=== PATIENT | female | born 1965 | race Caucasian/White ===

== ENCOUNTER 2020-06-13 09:40 | Outpatient (REF) | payer MEDICARE, SELFPAY ==
[2020-06-13 10:53] LABS: Anion Gap 13 (12-20); Blood Urea Nitrogen 14 mg/dL (9-16); Calcium 9.3 mg/dL (8.4-10.2); Carbon Dioxide 25 mmol/L (22-29); Chloride 105 mmol/L (96-108); Estimated Glomerular Filt Rate 40; Potassium 4.6 mmol/l (3.3-5.1); Sodium 138 mmol/L (135-145)
== END 2020-06-13 09:41 | disposition home or self-care (01) ==
LOC: HO.LAB 09:40
PROVIDERS: Visit Provider Internal Medicine Hypertension Specialist
DX: I10 Essential (primary) hypertension (principal); E11.21 Type 2 diabetes mellitus with diabetic nephropathy
CPT/HCPCS: 80051; 82310; 82565; 84520

== ENCOUNTER 2024-10-13 10:15 | Outpatient (REF) | payer MEDICARE, MEDICAID, SELFPAY ==
[2024-10-13 10:48] LABS: MANUAL DIFF FLAG NO
--- OUTSIDE RECORDS SUMMARY | 2024-10-13 11:10 | XMS_ITS | Encounter Summary ---
Author Organization [facility] Address [address] [address] Phone Care Team Providers Care Scientific Informatics Analyst Name Role Phone Manuel Stephenson MD Primary Care Provider [phone] Encounter Details Date Type Department Care Team (Late st Contact Info) Description 09/27/2024 Orders Only [facility] [address] [place] [address] Tor Johnson MD [address] [address] Stage 3b chronic kidney disease (HCC); Renal osteodystrophy; Hypertensive disorder Social History Tobacco Use Types Packs/Day Years Used Date Smoking Tobacco: Former Smokeless Tobacco: Never Alcohol Use Standard Drinks/Week Comments Never 0 (1 standard drink = 0.6 oz pure alcohol) Alcoholic Drinks/day: 1-2 drinks per day Comments Unknown Sex and Gender Information Value Date Recorded Sex Assigned at Not on file Legal Sex Female 4:55 PM EST Gender Identity Not on file Sexual Orientation Not on file documented as of this encounter Plan of Treatment Upcoming Encounters Date Type Department Care Team (Late st Contact Info) Description 10/20/2024 9:45 AM EST Office Visit [facility] [address] [address] Tor Johnson MD [address] [address] documented as of this encounter Visit Diagnoses Diagnosis Stage 3b chronic kidney disease (HCC) Renal osteodystrophy Hypertensive disorder documented in this encounter Care Teams Scientific Informatics Analyst Relationship Specialty Start Date End Date Manuel Stephenson MD [address] [place] [address] PCP - General 09/16/20 documented as of this encounter
--- OUTSIDE RECORDS SUMMARY | 2024-10-13 11:10 | XMS_ITS | Data Portability ---
Author Organization [facility] [address] Address [address] [place] [address] Care Team Providers Care Pick Pulling Machine Operator Name Role Phone SALINA LOPEZ Primary Care Provider Assessment No assessment recorded. Plan of Treatment Reminders Order Date Submit Date Provider Last Modified By Organization Details Last Modified Time Details Appointments None recorded . Lab None recorded . Referral orthoped ic surgeon referral - avulsion fracture of right ankle(fi bula) mildly displace . need further evaluati on and treatmen t. [facility] [address] [place], [address], 3 14:23:15 Procedures None recorded . Surgeries None recorded . Imaging XR, ankle, 3 or more view 2022 023 [facility], [address] [place], [address], 3 14:55:16 Medication Orders None recorded . Patient TargetsNo targets recorded. Patient Instructions Encounter Date Encounter Id Patient Instructions Last Modified By Organization Details Last Modified Time 03/26/2023 [id number] learning about rice (rest, ice, compression, and elevation) [email or web address] Not available 03/26/2023 13:52:08 ice or heat to area whichever feels better elevate affected area if it is a limb alternate ibuprofen, 4 hours later tylenol, 4 hours later back to ibuprofen may wrap for extra support wear tennis shoes or good arch supportive shoes start drawing your ABCs with your injured ankle to help strengthen the ligaments and tendons SEE FAMILY DOCTOR IF PAIN PERSISTS AFTER THE ABOVE TREATMENT--YOU MAY NEED PHYSCIAL THERAPY OR POSSIBLE MRI WITH REFERRAL TO SPECIALIST [email or web address] Not available 03/26/2023 13:52:08 Reason for Referral Orthopedic Surgeon Referral for Closed fracture of lateral malleolus avulsion fracture of right ankle(fibula) mildly displace. need further evaluation and treatment. avulsion fracture of right ankle(fibula) mildly displace. need further evaluation and treatment. Referring Physician: Chino Isaac, Urgent Care, Encounter Date: 03/26/2023 Results Created Date Observation Date Name Description Value Unit Range Abnormal Flag Note LastModifiedBy Organization Detail LastModifiedTime 03/26/20 23 03/26/2023 XR, ankle , 3 or more view No observ ation record ed. [email or web address] [facility] [address] [place], [place], [address], 03/26/2023 17:16:46 Result Notes None recorded. Problems Name Problem SNOMED Code Status Onset Date Resolution Date Notes Provider Name and Address Organization Details Recorded Time Hypertensive disorder 96555149 Active 2022 Monse Jaime null, [place] - [facility] 3 13:28:40 Diabetes mellitus 91487092 Active 2022 Monse Cusseta null, PA - [facility] 3 13:28:47 Kidney disease 98923047 Active 2022 stage 3 Monse Jaime null, PA - [facility] 3 13:28:56 Problem Notes None recorded. Procedures Surgical History None recorded. Imaging Results Imaging Date Name Status LastModified by Organiz ation Details LastModified Time 03/26/2023 XR, ankle, 3 or more view completed [email or web address] [facility] [address] [place], [place], [address], 03/26/2023 17:16:46 Procedure Notes None recorded. Medical Equipment None Reported. Allergies Allergen ID Allergen Name Allergen Category Reaction Reaction Severity Criticality Documentation Date Start Date Code Code System Note Provider Name and Address Organization Details Recorded Time 983057 amoxicill in medicatio n rash Not available Not available 03/26/2023 723 RxNorm Monse Cusseta null, PA - [facility] 3 13:28:13 Medications Name Sig Start Date Stop Date Status Note LastModified by Organization Details LastModified Time ziprasidone 80 mg capsule TAKE 1 CAPSULE BY MOUTH EVERYDAY AT BEDTIME active Not Available Not Available No t Available latanoprost 0.005 % eye drops INSTILL 1 DROP INTO BOTH EYES EVERY DAY AT NIGHT active Not Available Not Available No t Available atorvastati n 40 mg tablet TAKE 1 TABLET BY MOUTH EVERY EVENING active Not Available Not Available No t Available metformin 500 mg tablet TAKE 1 TABLET BY MOUTH EVERY MORNING AND 2 TABLETS IN THE EVENING WITH MEALS active Not Available Not Available No t Available clonidine HCl 0.1 mg tablet TAKE 1 TABLET BY MOUTH TWICE A DAY active Not Available Not Available No t Available lisinopril 20 mg tablet TAKE 1 TABLET BY MOUTH EVERY DAY active Not Available Not Available No t Available clonazepam 0.5 mg tablet TAKE 1/2 (ONE-HALF ) TABLET BY MOUTH IN THE EVENING NEEDED AND ONE TABLET AT BEDTIME active Not Available Not Available No t Available torsemide 10 mg tablet TAKE 1 TABLET BY MOUTH EVERY DAY active Not Available Not Available No t Available metronidazo le 500 mg tablet 1 TABLET TWICE A DAY AFTER MEALS 03/26 completed Not Available Not Available Not Available amlodipine 5 mg tablet TAKE 2 TABLETS BY MOUTH EVERY DAY active Not Available Not Available No t Available vancomycin 125 mg capsule 1 CAPSULE FOUR TIMES A DAY TAKE VANCOMYCI N FOR 10 DAYS THEN TAKE RIFAXIMIN 03/26 completed Not Available Not Available Not Available OneTouch Ultra Test strips USE 1 STRIP TWICE A DAY active Not Available Not Available No t Available mirtazapine 15 mg tablet TAKE 1 TABLET BY MOUTH EVERYDAY AT BEDTIME active Not Available Not Available No t Available fluoxetine 20 mg capsule TAKE 2 CAPSULES BY MOUTH EVERY MORNING active Not Available Not Available No t Available dicyclomine 10 mg capsule TAKE 1 CAPSULE BY MOUTH TWICE A DAY active Not Available Not Available No t Available cyclobenzap rine 5 mg tablet TAKE 1 TABLET BY MOUTH 3 TIMES A DAY active Not Available Not Available No t Available bupropion HCl XL 300 mg 24 hr tablet, extended release TAKE 1 TABLET BY MOUTH EVERY DAY IN THE MORNING active Not Available Not Available No t Available bupropion HCl XL 150 mg 24 hr tablet, extended release TAKE 1 TABLET BY MOUTH EVERY DAY IN THE MORNING active Not Available Not Available No t Available bimatoprost 0.03 % drops with applicator, eyelash base APPLY 1 DROP VIA APPLICATO R AT BEDTIME active Not Available Not Available No t Available Dificid 200 mg tablet TAKE 1 TABLET TWICE A DAY START TAKING AFTER YOU FINISH VANCOMYCI N active Not Available Not Available No t Available OneTouch Ultra2 Meter USE TO TEST BLOOD SUGER ONCE A DAY active Not Available Not Available No t Available OneTouch Delica Plus Lancet 33 gauge USE 1 LANCET TO CHECK BLOOD SUGAR ONCE DAILY active Not Available Not Available No t Available Vitals Date Recorded Body height Body mass index (BMI) Body weight Pain severity - 0-10 verbal numeric rating [Score] - Reported Oxygen saturation Oxygen saturation in Arterial blood by Pulse oximetry Heart rate Respiratory rate Body temperature Systolic blood pressure Diastolic blood pressure Provider Name and Address Organization Details Last Updated DateTime 170.18 cm 28.2 kg/m2 05562.6 3 g 10 97 % 97 % 104 /min 20 /min 98.1 [degF] 109 mm[Hg] 72 mm[Hg] Monse OSEI [facility] 13:30:42 Social History Question Answer Notes LastModified by [email or web address] ion Details LastModified Time Tobacco Smoking Status Never Smoker Monse villagran PA [facility] 03/26/2023 13:29:04 What Is Your Level Of Alcohol Consumption? None Information not available 03/26/2023 Have You Had Direct Contact, Or Contact During Intimacy, With Monkeypox Rash, Scabs, Or Body Fluids From A Person With Monkeypox? No Information not available 03/26/2023 Do You Use Any Illicit Or Recreational Drugs? No Information not available 03/26/2023 Have You Recently Traveled Abroad? No Information not available 03/26/2023 Do You Or Have You Ever Used Any Other Forms Of Tobacco Or Nicotine? No Information not available 03/26/2023 Sex: Unknown Functional Status None recorded. Mental Status None recorded. Family History Relationship Description Onset Age of this Age Resolved Age Notes LastModified by Organization Details LastModified Time Father No current problems or disability Not available 03/26 13:28:58 Mother No current problems or disability Not available 03/26 13:28:58 Medical History No medical history recorded. Gynecological History Statement/Question Response Is there any chance of ? No LMP N/A Obstetrics History GPAL:G 0 P 0 0 0 0 Immunizations Vaccine Type Date Status Note Provider Nam e and Address Organization Details Recorded Time zoster recombinant 1 completed Monse Jaime null, PA - [facility] 03/26/2023 13:28:06 zoster recombinant 0 completed Monse Jaime null, PA - [facility] 03/26/2023 13:28:06 COVID-19, mRNA, LNP-S, PF, 30 mcg/0.3 mL dose 1 completed Monse Jaime null, PA - [facility] 03/26/2023 13:28:06 COVID-19, mRNA, LNP-S, PF, 30 mcg/0.3 mL dose 1 completed Monse Jamie null, PA - [facility] 03/26/2023 13:28:06 COVID-19, mRNA, LNP-S, PF, 30 mcg/0.3 mL dose 1 completed Monse Cusseta null, PA - [facility] 03/26/2023 13:28:06 pneumococcal polysaccharide PPV23 1 completed Monse Cusseta null, PA - [facility] 03/26/2023 13:28:06 Tdap 4 completed Omnse Jaime null, PA - [facility] 03/26/2023 13:28:06 Influenza, split virus, trivalent, preservative 2 completed Monse Cusseta null, PA - [facility] 03/26/2023 13:28:06 Influenza, split virus, trivalent, preservative 5 completed Monse Jaime null, PA - [facility] 03/26/2023 13:28:06 Influenza, split virus, trivalent, preservative 3 completed Monse Cusseta null, PA - [facility] 03/26/2023 13:28:06 Influenza, split virus, trivalent, preservative 4 completed Monse Cusseta null, PA - [facility] 03/26/2023 13:28:07 Influenza, split virus, trivalent, preservative 1 completed Monse Cusseta null, PA - [facility] 03/26/2023 13:28:07 Influenza, split virus, trivalent, PF 6 completed Monse Cusseta null, PA - [facility] 03/26/2023 13:28:07 Influenza, split virus, quadrivalent, PF 0 completed Monse Jaime null, PA - [facility] 03/26/2023 13:28:07 Influenza, split virus, quadrivalent, PF 8 completed Monse Cusseta null, PA - [facility] 03/26/2023 13:28:07 Past Encounters Encounter ID Performer Location Encounter Start Date Encounter Closed Date Diagnosis/Indication Diagnosis SNOMED-CT Code Diagnosis ICD10 Code Diagnosis Note [id number] [address] [address] 07/17/2019 09:19:36 07/17/2019 09:44:27 [id number] [place] [address] [address] [place] [address] 03/26/2023 13:14:04 03/26/2023 14:21:33 Pain of right ankle joint 9910662593 8061099 M25.571 Closed fra cture of lateral malleolus 82719499 S82.61XA Health Concerns Section Related Observation LastModified by Organization Detai ls LastModified Time None Recorded Concern Status LastModified by Organization Details LastModified Time None Recorded Advance Directives Directive None Recorded Payers Encounter Date Sequence Insurance Name Policy Number Policy Rooney Covered Member ID Rooney Member ID Guarantor Name 07/17/2019 1 [facility] (MEDICARE REPLACEMENT HMO) February Roberto [id number] February Roberto 03/26/2023 1 [facility] SENIOR [facility] (MEDICARE REPLACEMENT HMO) February Roberto [id number] February Roberto 03/26/2023 2 [place] [facility] February Roberto [id number] February Notes Date Note Type Note Provider Name and Address Organization Details Recorded Time 3 text/html Foot/Ankle UCReported bypatient.source of patient informationInformation obtained from patient; Patient arrived at Urgent Care ambulatory; learning styles: auditory Location:right; ankle Problemswelling Severity:moderate Duration:4 days Context:twisting; overuse Associated Symptoms:no weakness; no numbness; no tingling; no ecchymosis;swelling;redness ;warmth Aggravating factors:standing; walking; work Alleviating factors:ice; limited weight bearing; rest Previous InjuryNo prior injury to affected body part Previous Treatmentnone Prior Imaging:none Chino Isaac NP [address] [place], [address], [place] - [facility] 03/26/2023 17:05:16 OBGyn Episode No OBEpisode recorded.
--- OUTSIDE RECORDS SUMMARY | 2024-10-13 11:10 | XMS_ITS | Encounter Summary ---
Author Organization [facility] Address [address] [place] [address] Phone Care Team Providers Care Boring Mill Set Up Operator Name Role Phone Manuel Stephenson MD Primary Care Provider Encounter Details Date Type Department Care Team (Late st Contact Info) Description 12/21/2022 Telephone [facility] [address] [place] [address] Grace Hall MA Social History Tobacco Use Types Packs/Day Years [...] on file documented as of this encounter Miscellaneous Notes * Telephone Encounter - Grace Hall MA - 12/21/2022 10:02 AM EDT This message was cortexted PT Meghana Mejia 1965 Pt called, she is currently admitted to [facility] in room 462 due to a bad fall she had this weekend. Shefeels she is not getting sufficient care as they have not been giving her her bp meds and she has been running high in the 140's 150's. In addition her legs and feet have swollen considerably and it has not been addressed. She would like to speak with you about her care as she doesn't trust the staff onsite. Please call her back at [phone] when you get the chance thank you. This message has been sent through [employer] as well. documented in this encounter Plan of Treatment Upcoming Encounters Date Type Department Care Team (Late st Contact Info) Description 10/20/2024 9:45 AM EST Office Visit [facility] [address] [address] Tor Johnson MD [address] [address] documented as of this encounter Visit Diagnoses Not on filedocumented in this encounter Care Teams Boring Mill Set Up Operator Relationship Specialty Start Date End Date Manuel Stephenson MD [address] [place] [address] PCP - General 09/16/20 documented as of this encounter
--- OUTSIDE RECORDS SUMMARY | 2024-10-13 11:10 | XMS_ITS | Clinical Summary ---
Author Organization [facility] Address [address] [id number] Care Team Providers Care Safety Attendant Name Role Phone Brigida Tucker MD Primary Care Provider [phone] Allergies Active Allergy Reactions Criticality Noted Date Comments Amoxicillin 05/28/2017 Latex 05/28/2017 Medications Medication Sig Dispensed Refills Start Date End Date Status atorvastatin (LIPITOR) tablet 40 mg 0 05/04/2017 Active buPROPion (WELLBUTRIN XL) 150 MG 24 hr tablet 0 05/25/2017 Active clonazePAM (KLONOPIN) 0.5 MG tablet 0 05/11/2017 Active cloNIDine (CATAPRES) tablet 0.1 mg 0 05/11/2017 Active FLUoxetine (PROZAC) 10 MG capsule 0 05/25/2017 Active lisinopril (PRINIVIL,ZESTRIL) tablet 20 mg 0 05/04/2017 Active metFORMIN (GLUCOPHAGE) tablet 500 mg 0 05/18/2017 Active mirtazapine (REMERON) 15 MG tablet 0 05/11/2017 Active propranolol (INDERAL LA) 60 MG 24 hr capsule 0 05/25/2017 Active ziprasidone (GEODON) 80 MG capsule 0 05/11/2017 Active buPROPion (WELLBUTRIN XL) 300 MG 24 hr tablet 0 12/21/2017 Active Active Problems Problem Noted Date Diagnosed Date Arthritis of right knee 12/29/2017 Arthritis of left knee 05/28/2017 Social History Tobacco Use Types Packs/Day Years Used Date Smoking Tobacco: Never Assessed Sex and Gender Information Value Date Recorded Sex Assigned at Not on file Gender Identity Not on file Sexual Orientation Not on file Last Filed Vital Signs Vital Sign Reading Time Taken Comments Blood Pressure - - Pulse - - Temperature - - Respiratory Rate - - Oxygen Saturation - - Inhaled Oxygen Concentration - - Weight 81.2 kg (179 lb) 11/16/2018 8:45 AM EDT Height 172.7 cm (5' 8 ) 11/16/2018 8:45 AM EDT Body Mass Index 27.22 11/16/2018 8:45 AM EDT Plan of Treatment Health Maintenance Due Date Last Done Comments Hepatitis B Vaccines (1 of 3 - 3-dose series) 1965 Hepatitis C Screening 1965 COVID-19 Vaccine (#1) 1965 Depression Screening 1979 Preventative Health Evaluation 1985 DTap / Tdap / Td (1 - Tdap) 1986 Cervical Cancer Screening (P ap Smear) 1988 Colon Cancer Screening (Colonoscopy) 2012 Breast Cancer Screening (Mammogram) 2017 Shingrix-Zoster Vaccine (1 of 2) 2017 Influenza Vaccine (#1) 2024 Pneumococcal Vaccine Aged Out No long er eligible based on patient's age to complete this topic RSV Ped < 20 months Aged Out No longe r eligible based on patient's age to complete this topic Care Teams Safety Attendant Relationship Specialty Start Date End Date Brigida Tucker MD PCP - General Internal Medicine 04/30/17
--- OUTSIDE RECORDS SUMMARY | 2024-10-13 11:10 | XMS_ITS | Encounter Summary ---
Author Organization [facility] Address [address] [place] [address] Phone Care Team Providers Care Electric Meter Technician Name Role Phone Manuel Stephenson MD Primary Care Provider Encounter Details Date Type Department Care Team (Late st Contact Info) Description 10/20/2023 Office Communication [facility] [address] [place] [address] Tor Johnson MD [address] [address] Social History Tobacco Use Types Packs/Day Years [...] encounter Miscellaneous Notes * Telephone Encounter - Tor Johnson MD - 10/20/2023 2:17 PM EST I sent Rx for jardiance naz castillo documented in this encounter Plan of Treatment Upcoming Encounters Date Type Department Care Team (Late st Contact Info) Description 10/20/2024 9:45 AM EST [facility] [address] [facility] [address] [place] [address] Tor Johnson MD [address] [facility] [address] [place] [address] documented as of this encounter Visit Diagnoses Not on filedocumented in this encounter Care Teams Electric Meter Technician Relationship Specialty Start Date End Date Manuel Stephenson MD [address] [place] [address] PCP - General 09/16/20 documented as of this encounter
--- OUTSIDE RECORDS SUMMARY | 2024-10-13 11:11 | XMS_ITS | Clinical Summary ---
Author Organization [facility] Address [address] [address] Phone Care Team Providers Care Complaint Investigations Officer Name Role Phone Manuel Stephenson MD Primary Care Provider [phone] Allergies Active Allergy Reactions Criticality Noted Date Comments Amoxicillin Other (see comments) 05/28/2017 Latex 05/28/2017 Medications Turmeric (QC Tumeric Complex) 500 MG capsule Active Multiple Vitamin (multivitamin) capsule Take 1 capsule by mouth 1 (one) time each day Active aspirin (ST ROSIE) 81 MG EC tablet Take 1 tablet by mouth 1 (one) time each day Active atorvastatin (LIPITOR) 40 MG tablet Take 1 tablet by mouth 1 (one) time each day Active buPROPion XL (WELLBUTRIN XL) 300 MG 24 hr tablet Take 1 tablet by mouth 1 (one) time each day Active clonazePAM (KlonoPIN) 0.5 MG tablet Take 1 tablet by mouth at bed time Active cloNIDine (CATAPRES) 0.1 MG tablet Take 1 tablet by mouth 2 (two) times a day Active FLUoxetine (PROzac) 20 MG capsule Take 40 mg by mouth 1 (one) time each day Active Melatonin 5 MG capsule Active mirtazapine (REMERON) 15 MG tablet Take 1 tablet by mouth 1 (one) time each day Active ziprasidone (GEODON) 80 MG capsule Take 1 capsule by mouth 1 (one) time each day Active metFORMIN (GLUCOPHAGE) 500 MG tablet TAKE 1 TABLET BY MOUTH IN THE MORNING AND 2 IN THE EVENING WITH MEALS 11/05/2020 Active buPROPion XL (WELLBUTRIN XL) 150 MG 24 hr tablet Take 150 mg by mouth every morning 03/16/2021 Active amLODIPine (NORVASC) 5 MG tablet Take 10 mg by mouth 1 (one) time each day 09/30/2021 Active lisinopril 20 MG tablet Take 20 mg by mouth 1 (one) time each day 10/23/2021 Active torsemide (DEMADEX) 10 MG tablet Take 10 mg by mouth 1 (one) time each day Active Active Problems Problem Noted Date Diagnosed Date Stage 3b chronic kidney disease 06/24/2023 Renal osteodystrophy 06/24/2023 Obese class I 06/22/2023 06/22/2023 Disorder of kidney 03/26/2023 Overview (12/03/2023): stage 3 Diabetes mellitus 03/26/2023 Acute nontraumatic kidney injury 10/23/2020 Hypertensive disorder 10/23/2020 Renal disorder due to type 2 diabetes mellitus 0 10/23/2020 Arthritis of right knee 12/29/2017 Arthritis of left knee 05/28/2017 Encounters Date Type Department Care Team Description 09/27/2024 Orders Only [facility] [address] [phone] Tor Johnson MD Stage 3b chronic kidney disease (HCC); Renal osteodystrophy; Hypertensive disorder from Last 3 Months Immunizations Name Administration Dates Next Due Influenza (IM) Preservative Free 06/18/2016 Influenza, Quadrivalent, Pre servative Free 04/28/2020,05/20/2018 Influenza, Unspecified 05/20/2015,2013,05/25/2013,05/16,08/06/2011 Pfizer SARS-COV-2 07/21/2021,11/02/2020,10/12/19 21 Pneumococcal Polysaccharide 08/06/2011 Shingrix 12/11/2020,07/08/2020 Tdap 11/09/2013 Family History Medical History Relation Comments Hypertension Father Kidney disease Father PKD Diabetes Mother Heart disease Mother Relation Status Comments Father Unknown Mother Unknown Social History Tobacco Use Types Packs/Day Years Used Date Smoking Tobacco: Former Smokeless Tobacco: Never Tobacco Cessation:Counseling Given: Not Answered Alcohol Use Standard Drinks/Week Comments Never 0 [...] Sign Reading Time Taken Comments Blood Pressure 124/70 06/27/2024 1:02 PM EDT Pulse 102 06/27/2024 1:02 PM EDT Temperature - - Respiratory Rate - - Oxygen Saturation 96% 06/27/2024 1:02 PM EDT Inhaled Oxygen Concentration - - Weight 83.9 kg (185 lb) 06/27/2024 1:02 PM EDT Height 170.2 cm (5' 7 ) 11/23/2022 2:58 PM EDT Body Mass Index 28.98 11/23/2022 2:58 PM EDT Plan of Treatment Upcoming Encounters Date Type Department Care Team (Late st Contact Info) Description 10/20/2024 9:45 AM EST Office Visit [facility] [address] [phone] Tor Johnson MD [address] [phone] Health Maintenance Due Date Last Done Comments Breast Cancer Screening 1965 Hepatitis B Vaccine (1 of 3 - 19+ 3-dose series) 1986 Pneumococcal Vaccine: Pediat rics (0 to 5 Years) and At-Risk Patients (6 to 64 Years) (2 of 2 - PCV) 08/06/2012 08/06/2011 Colorectal Cancer Screening: Annual FOBT 2016 Colorectal Cancer Screening: Colonoscopy 2016 Colorectal Cancer Screening: Sigmoidoscopy 2016 Diabetes: Hemoglobin A1C 10/07/2020 Diabetes: Ophthalmology Exam 10/07/2020 Diabetes: Pedal Pulse Checked 10/07/2020 Diabetes: Sensory Foot Exam 10/07/2020 Diabetes: Visual Foot Exam 10/07/2020 Influenza Vaccine (#1) 2024 0, 05/20/2018, 06/18/2016, Additional history exists Insurance [employer] [place] [employer] [place] Care Teams Complaint Investigations Officer Relationship Specialty Start Date End Date Manuel Stephenson MD [address] [place] [address] PCP - General 09/16/20
--- OUTSIDE RECORDS SUMMARY | 2024-10-13 11:11 | XMS_ITS | Encounter Summary ---
Author Organization [facility] Address [address] [facility] [address] [place] [address] Phone Care Team Providers Care Machine Straw Hat Presser Name Role Phone Manuel Stephenson MD Primary Care Provider [phone] Reason for Referral * Imaging (Routine) - Closed Specialty Diagnoses / Procedures Referred By Juan retana Referred To Contact Diagnoses Stage 3b chronic kidney disease (HCC) Procedures Ultrasound renal limited Tor Johnson MD Phone: tel: fax: Referral ID Status Reason Start Date Expiration Date Visits Re quested Visits Authorized [id number] Closed 04/04/2024 04/04/2025 1 1 * Imaging (Routine) - Closed Specialty Diagnoses / Procedures Referred By Juan retana Referred To Contact Diagnoses Stage 3b chronic kidney disease (HCC) Procedures Renal Artery Duplex Tor Johnson MD Phone: tel: fax: Referral ID Status Reason Start Date Expiration Date Visits Re quested Visits Authorized [id number] Closed 04/04/2024 04/04/2025 1 1 Encounter Details Date Type Department Care Team (Latest Contact Info) Description 04/04/2024 Office Communication [facility] [address] [facility] [address] [place] [address] Tor Johnson MD [address] [facility] [address] [place] [address] Stage 3b chronic kidney disease (HCC) (Primary Dx) Social History Tobacco Use Types Packs/Day Years [...] Telephone Encounter - Tor Johnson MD - 04/04/2024 2:57 PM EDT Us and doppler ordered per ur request--thx documented in this encounter Plan of Treatment Upcoming Encounters Date Type Department Care Team (Late st Contact Info) Description 10/20/2024 9:45 AM EST Office Visit [facility] [address] [phone] Tor Johnson MD [address] [phone] Scheduled Orders Name Type Priority Associated Diagnoses Orde r Schedule Renal Artery Duplex Imaging Routine Stage 3b chronic kidney disease (HCC) Expected: 04/11/2024, Expires: 04/04/2025 Ultrasound renal limited Imaging Routine Stage 3b chronic kidney disease (HCC) Expected: 04/11/2024, Expires: 04/04/2025 documented as of this encounter Visit Diagnoses Diagnosis Stage 3b chronic kidney disease (HCC)- Primary documented in this encounter Care Teams Machine Straw Hat Presser Relationship Specialty Start Date End Date Manuel Stephenson MD [address] [place] [address] PCP - General 09/16/20 documented as of this encounter
--- OUTSIDE RECORDS SUMMARY | 2024-10-13 11:11 | XMS_ITS | Encounter Summary ---
Author Organization [facility] Address [address] [place] [address] Care Team Providers Care Rubber Boots And Shoes Repairer Name Role Phone Physician, Pcp Unknown Primary Care Provider Chloe vailable Reason for Referral * Consultation (Urgent) - Pending Review Specialty Diagnoses / Procedures Referred By Juan retana Referred To Contact Dermatology Diagnoses Skin disorder Neena Ragland CNM [address] [place] [address] Referral ID Status Reason Start Date Expiration Date Visits Requested Visits Authorized [id number] Pending Review Specialty Services Required 09/15/2024 09/15/2025 1 1 Reason for Visit * Reason Comments Vaginitis/Bacterial Vaginosis Encounter Details Date Type Department Care Team (Latest Contact Info) Description 09/15/2024 1:00 PM EST Office Visit Obstetrics and Gynecology - [place] [address] [place] [phone] Neena Ragland CNM [address] [place] [address] Skin reaction due to streptococcal toxin (Primary Dx); Skin disorder; Orly vaginitis Social History Tobacco Use Types Packs/Day Years Used Date Smoking Tobacco: Former Cigarettes Smokeless Tobacco: Never Tobacco Cessation:Counseling Given: Not Answered Alcohol Use Standard Drinks/Week Comments No 0 (1 standard drink = 0.6 oz pur e alcohol) Sex and Gender Information Value Date Recorded Sex Assigned at Not on file Gender Identity Not on file Sexual Orientation Not on file Job Start Date Occupation Industry Not on file Not on file Not on file documented as of this encounter Last Filed Vital Signs Vital Sign Reading Time Taken Comments Blood Pressure 133/83 09/15/2024 1:15 PM EST Pulse 98 09/15/2024 1:15 PM EST Temperature - - Respiratory Rate - - Oxygen Saturation - - Inhaled Oxygen Concentration - - Weight 87.5 kg (193 lb) 09/15/2024 1:15 PM EST Height - - Body Mass Index 30.23 04/06/2024 9:51 AM EDT documented in this encounter Ordered Prescriptions Prescription Sig Dispensed Refills Start Date End Da te terconazole (TERAZOL 3) 80 mg vaginal suppository Insert 1 suppository (80 mg total) into the vagina at bedtime. Apply pv x3days 1 suppository 1 09/15/2024 nystatin-triamcinolon e (MYCOLOG II) ointment 3-4x/day to affected area 30 g 1 09/15/2024 documented in this encounter Progress Notes * Neena Ragland CNM - 09/15/2024 1:00 PM EST Images from the original note were not included. Chief Complaint Patient presents with Vaginitis/Bacterial Vaginosis .Subjective Patient ID: Meghana Mejia is a 59 y.o. female. Presents c/o vaginal itching reporting that had reactx propylene glycol was in every med she used caused increase break out. Currently on postmenopause . HPI Active Ambulatory Problems Diagnosis Date Noted Alcohol abuse, in remission 02/10/2010 Borderline personality disorder ([facility]/HCC) 01/27/2010 Bunion 05/16/2012 Clostridium difficile diarrhea 06/02/2015 WILSON (dyspnea on exertion) 03/25/2010 Fatty liver 07/24/2010 HTN (hypertension), benign 01/27/2010 Mammographic fibroglandular density, bilateral breasts 02/03/2024 Migraine 12/28/2011 Opioid abuse, in remission (CMS/HCC) 05/14/2016 Primary osteoarthritis of left knee 01/23/2016 Pure hypercholesterolemia 03/25/2010 Recurrent Clostridium difficile diarrhea 07/04/2015 Sebaceous cyst 08/16/2012 Controlled diabetes mellitus type II without complication (CMS/[facility]) 05/04/2011 Resolved Ambulatory Problems Diagnosis Date Noted No Resolved Ambulatory Problems Past Medical History: Diagnosis Date Alcohol abuse 02/10/2010 Basal cell carcinoma of skin 07/30/2015 Bipolar disorder ([facility]) 01/27/2010 Dysplastic nevus 07/18/2013 ETOH abuse 02/10/2010 Historical Medical DX History of basal cell carcinoma 07/30/2015 History of dysplastic nevus 07/18/2013 History of malignant melanoma of skin 07/07/2012 History of pancreatitis 07/24/2010 Malignant melanoma ([facility]) 07/07/2012 Melanoma ([facility]) 02/10/2010 Nevus, non-neoplastic Pancreatitis 02/10/2010 Type II or unspecified type diabetes mellitus with unspecified complication, not stated as uncontrolled Review of Systems Genitourinary: Positive for vaginal discharge. Negative for difficulty urinating, dyspareunia, dysuria and frequency. Objective Physical Exam Constitutional: Appearance: Normal appearance. Genitourinary: Urethral meatus normal. Genitourinary Comments: Vaginal erythema Right Labia: No rash, tenderness or lesions. Left Labia: No tenderness, lesions or rash. Vaginal discharge present. Right Adnexa: not tender and no mass present. Left Adnexa: not tender and no mass present. Cervical discharge present. No cervical motion tenderness. Uterus is not enlarged or tender. No uterine mass detected. Neurological: Mental Status: She is alert and oriented to person, place, and time. Assessment/Plan Skin reaction due to streptococcal toxin (Primary) Skin disorder - Ambulatory referral to Dermatology; Future Orly vaginitis - POC [place] Other orders - nystatin-triamcinolone (MYCOLOG II) ointment; 3-4x/day to affected area Dispense: 30 g; Refill: 1 - terconazole (TERAZOL 3) 80 mg vaginal suppository; Insert 1 suppository (80 mg total) into the vagina at bedtime. Apply pv x3days Dispense: 1 suppository; Refill: 1 Rx sent Aware to review ingredients with pharmacy before using F/u prn documented in this encounter Plan of Treatment Upcoming Encounters Date Type Department Care Team (Late st Contact Info) Description 02/05/2025 10:20 AM EDT Appointment Radiology Department - [address] [phone] 02/14/2025 10:15 AM EDT Office Visit Obstetrics and Gynecology - [address] [phone] Dee Oh MD [address] [place], [place] Scheduled Referrals Name Type Priority Associated Diagnoses Order Schedule Ambulatory referral to Dermatology Outpatient Referral Routine Skin disorder 1 Occurrences starting 09/15/2024 until 09/15/2025 documented as of this encounter Procedures Procedure Name Priority Date/Time Associated Diagnosis Comments POC W[place] Routine 09/15/2024 1:45 PM EST Oryl vaginitis documented in this encounter Results * (ABNORMAL) POC [place] (09/15/2024 1:45 PM EST) Trichomonas, Wet Prep POC Absent Absent Yeast, Wet Prep POC Positive(A) Not Applicable, Negative Clue Cells, Wet Prep POC Negative Not Applicable, Negative WBC, Wet Prep POC Positive(A) Not Applicable, Negative RBC, Wet Prep POC Negative Not Applicable, Negative Vaginal Fluid Vaginal structure / Unknown 09/15/2024 1:45 PM EST Neena Ragland CNM POINT OF CARE TEST E NTER/EDIT ORDERABLES documented in this encounter Visit Diagnoses Diagnosis Skin reaction due to streptococcal toxin- Primary Skin disorder Unspecified disorder of skin and subcutaneous tissue Orly vaginitis Candidiasis of vulva and vagina Encounter for screening mammogram for breast cancer documented in this encounter Care Teams Rubber Boots And Shoes Repairer Relationship Specialty Start Date End Date Physician, Pcp Unknown PCP - General 09/15/24 10/05/24 documented as of this encounter
--- OUTSIDE RECORDS SUMMARY | 2024-10-13 11:11 | XMS_ITS | Clinical Summary ---
Author Organization [facility] Address [address] [place] [phone] Phone Care Team Providers Care Field Auditor Name Role Phone Physician, No Pcp Primary Care Provider Unavaila ble Allergies Active Allergy Reactions Criticality Noted Date Comments Amoxicillin Other 02/22/2012 Amoxicillin-Pot Clavulanate Other Medium 08/21/20 10 Latex Other 01/27/2010 Inflammation in mouth and vaginal area Medications Medication Sig Dispensed Refills Start Date End Date Status blood glucose control, normal solution For testing glucose strips 05/07/2011 Active blood-glucose calib. control (BLOOD-GLUCOSE CALIBRAT CONTROL MISC) USE DIRECTED 05/07/2011 Active glucose blood test strip USE TO TEST WHEN WAKING UP (PRE-BREAKFAST) AND 2 HOURS AFTER A MEAL 12/31/2014 Active lancets lancets USE TO TEST WHEN WAKING UP (PRE-BREAKFAST) AND 2 HOURS AFTER A MEAL 12/31/2014 Active ONETOUCH DELICA LANCETS MISC Apply 1 Stick topically 2 times daily. 05/07/2011 Active TORSEMIDE ORAL Take by mouth. Active atorvastatin (LIPITOR) 40 mg tablet Take 1 Tab by mouth daily. 04/13/2018 Active buPROPion XL (WELLBUTRIN XL) 150 mg 24 hr tablet Take 1 Tab by mouth daily. 09/22/2012 Active buPROPion XL (WELLBUTRIN XL) 300 mg 24 hr tablet Take 300 mg by mouth every morning. Active clonazePAM (KlonoPIN) 1 mg tablet Take 1 Tab by mouth daily. 11/09/2013 Active cloNIDine (CATAPRES) 0.1 mg tablet TAKE 1 TABLET BY MOUTH TWICE DAILY 05/06/2018 Active dulaglutide (Trulicity) 0.75 mg/0.5 mL pen injector injection Inject into the skin. Active FLUoxetine (PROzac) 10 mg capsule Take 10 mg by mouth daily. 3 daily Active fluticasone propionate (FLONASE) 50 mcg/actuation nasal spray 1 [place] by Each Nare route daily. 06/01/2014 Active lisinopriL (PRINIVIL,ZESTRIL ) 20 mg tablet Take 1 Tab by mouth daily. 09/27/2017 Active metFORMIN (GLUCOPHAGE) 500 mg tablet TAKE 2 TABLETS BY MOUTH TWICE DAILY WITH MEALS 03/25/2018 Active propranolol LA (Inderal LA) 60 mg 24 hr capsule Take 1 Cap by mouth daily. 05/05/2018 Active valsartan (DIOVAN) 160 mg tablet Take 160 mg by mouth daily. Active ziprasidone (GEODON) 80 mg capsule 1 capsule daily Active nystatin-triamcin olone (MYCOLOG II) ointment 3-4x/day to affected area 30 g 1 09/15/2024 Active terconazole (TERAZOL 3) 80 mg vaginal suppository Insert 1 suppository (80 mg total) into the vagina at bedtime. Apply pv x3days 1 suppository 1 09/15/2024 Active Active Problems Problem Noted Date Diagnosed Date Mammographic fibroglandular density, bilateral b reasts 02/03/2024 Overview (09/11/2024): 01/2024 Left breast: Amorphous calcifications, some of the coarser than in January 2023, located in the surface of the implant. Probably benign. A 6-month follow-up is recommended with spot magnified compression views. ?? BI-RADS: Category 3: Probably benign ?? Findings and recommendations discussed with the patient at completion of the studies Opioid abuse, in remission 05/14/2016 Overview (09/11/2024): 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 Primary osteoarthritis of left knee 01/23/2016 Recurrent Clostridium difficile diarrhea 015 Clostridium difficile diarrhea 06/02/2015 Sebaceous cyst 08/16/2012 Bunion 05/16/2012 Overview (09/11/2024): Both feet. S/p bunionectomy right foot but recurred Migraine 12/28/2011 Controlled diabetes mellitus type II without com plication 05/04/2011 Fatty liver 07/24/2010 Overview (09/11/2024): Noted on CT abd 11/2009 WILSON (dyspnea on exertion) 03/25/2010 Overview (09/11/2024): ECHO, PFT unremarkable 02/13 Pure hypercholesterolemia 03/25/2010 Alcohol abuse, in remission 02/10/2010 Overview (09/11/2024): ETOH pancreatitis 11/2009; another episode 01/2015. As of 05/2016 - drinks only on weekends. Borderline personality disorder 01/27/2010 Overview (09/11/2024): Diagnosed by a psychiatrist with bipolar, More depression than manic; however 2012 diagnosed with borderline personality d/o by [employer]GER [employer] HTN (hypertension), benign 01/27/2010 Encounters Date Type Department Care Team Description 09/15/2024 1:00 PM EST Office Visit Obstetrics and Gynecology - [address] [phone] Neena Ragland, [place] Skin reaction due to streptococcal toxin (Primary Dx); Skin disorder; Orly vaginitis 08/08/2024 9:20 AM EST - 08/08/2024 11:59 PM EST Hospital Encounter Radiology Department - [address] [phone] Other abnormal and inconclusive findings on diagnostic imaging of breast Discharge Disposition: Home or Self Care from Last 3 Months Immunizations Name Administration Dates Next Due Influenza Quadravalent, MDCK , 0.5ml, with preservative (Flucelvax) 6mo and older 06/07/2017 Influenza, Unspecified 04/28/2020,2015,05/20/2015,05/25,05/16/2012,08/06/2011 PPD Test 03/11/2016,01/03/2014,12/10/2011 Pneumococcal polysaccharide 23 valent (Pneumovax 23) 2yo and older 08/06/2011 Tdap Tetanus diptheria acell ular pertussis (Boostrix; Adacel) 7yo and older 11/09/2013 Zoster recombinant (Shingrix ) 19yo and older 12/11/2020,07/08/2020 Surgical History Surgery Date Site/Laterality Comments KNEE SURGERY PROCEDURE: HISTORICAL KNEE SURGERY; COMMENT: acl OTHER SURGICAL HISTORY 1996 PROCEDURE: ---- OTHER ----; COMMENT: Breast augmentation /enlarged SECTION 1998 PROCEDURE: HISTORICAL OTHER SURGICAL HISTORY PROCEDURE: HISTORICAL MELANOMA MOLE REMOVAL PROCEDURE: HISTORICAL MOLE (REMOVAL OF) BREAST SURGERY Bilateral PROCEDURE: MA UNLISTED PROCEDURE BREAST; COMMENT: augmentation OTHER SURGICAL HISTORY 1996 PROCEDURE: IMPLANT BREAST SILICONE/EQ; COMMENT: silicone implants BREAST BIOPSY 01/08/2021 Right PROCEDURE: BX BREAST; PERC NEEDLE CORE W/IMAG GUID Medical History Medical History Date Comments Bipolar disorder (CMS/HCC) 01/27/2010 DX:Bi polar disorder (HCC) HTN (hypertension), benign 01/27/2010 DX:HT N (hypertension), benign ETOH abuse 02/10/2010 DX:ETOH abuse Pancreatitis 02/10/2010 DX:Pancreatitis Melanoma (CMS/HCC) 02/10/2010 DX:Melanoma ( HCC) Pure hypercholesterolemia 03/25/2010 DX:Pur e hypercholesterolemia WILSON (dyspnea on exertion) 03/25/2010 DX:WILSON (dyspnea on exertion) Historical Medical DX DX:Hx-cerv ical dysplasia; COMMENT: cone biopsy Type II or unspecified type diabetes mellitus with unspecified complication, not stated as uncontrolled DX:Type II or unspecified ty pe diabetes mellitus with unspecified complication, not stated as uncontrolled Nevus, non-neoplastic DX:Nevus, non-neoplastic Fatty liver 07/24/2010 DX:Fatty liver; COMMENT: Noted on CT abd 11/2009 Clostridium difficile diarrhea 06/02/2015 D X:Clostridium difficile diarrhea Dysplastic nevus 07/18/2013 DX:Dysplastic n evus; COMMENT: Dysplastic nevus 07/19 left leg (mild atypia) Sebaceous cyst 08/16/2012 DX:Sebaceous cys t Malignant melanoma (CMS/HCC) 07/07/2012 DX: Malignant melanoma (HCC); COMMENT: Malignant melanoma 1994 posterior aspect left thigh (superficial spreading breath low 0.4 mm Brenton level I per patient's recollection) Bunion 05/16/2012 DX:Bunion; COMME NT: Both feet. S/p bunionectomy right foot but recurred Migraine 12/28/2011 DX:Migraine Controlled diabetes mellitus type II without complication (CMS/HCC) 05/04/2011 DX:Controlled diabetes mellitus type II without complication ([facility]) History of pancreatitis 07/24/2010 DX:Histo ry of pancreatitis; COMMENT: November 2009, [facility], thought to be alcohol-induced Alcohol abuse 02/10/2010 DX:Alcohol abuse ; COMMENT: ETOH pancreatitis 11/2009; another episode 01/2015 Borderline personality disor wesly (CMS/HCC) 01/27/2010 DX:Borderline personality di sorder ([facility]); COMMENT: Diagnosed by a psychiatrist with bipolar, More depression than manic; however 2012 diagnosed with borderline personality d/o by [employer] Basal cell carcinoma of skin 07/30/2015 DX: Basal cell carcinoma of skin History of basal cell carcinoma 07/30/2015 DX:History of basal cell carcinoma; COMMENT: BCC 07/21 forehead (nodular) History of dysplastic nevus 07/18/2013 DX:H istory of dysplastic nevus; COMMENT: Dysplastic nevus 07/19 left leg (mild atypia) History of malignant melanoma of skin 07/07/2012 DX:History of malignant melanoma of skin; COMMENT: Malignant melanoma 1995 posterior aspect left thigh (superficial spreading breath low 0.4 mm Brent[place] level I per patient's recollection). Followed by [facility] Family History Medical History Relation Name Comments Hypertension Father Other: renal failure Father on HD, had kidney cysts Macular degeneration Maternal Grandfather Other cancer Maternal Grandmother ? fema le cancer Cataracts Mother Diabetes Mother Glaucoma Mother Other: PVD Mother Uterine cancer Mother hystercetomy age 60 No Known Problems Sister Blindness Neg Hx Breast cancer Neg Hx Colon cancer Neg Hx Strabismus Neg Hx Relation Name Status Comments Father (Age 75) traumatic brain injury Maternal Grandfather Maternal Grandmother Mother Alive dm, pvd Sister Alive Social History Tobacco Use Types Packs/Day Years [...] file Not on file Not on file Obstetrics History Last Filed Vital Signs Vital Sign Reading Time Taken Comments Blood Pressure 133/83 09/15/2024 1:15 PM EST Pulse 98 09/15/2024 1:15 PM EST Temperature - - Respiratory Rate - - Oxygen Saturation - - Inhaled Oxygen Concentration - - Weight 87.5 kg (193 lb) 09/15/2024 1:15 PM EST Height 170.2 cm (5' 7 ) 04/06/2024 9:51 AM EDT Body Mass Index 30.23 04/06/2024 9:51 AM EDT Plan of Treatment Upcoming Encounters Date Type Department Care Team (Late st Contact Info) Description 02/05/2025 10:20 AM EDT Appointment Radiology Department - [address] [phone] 02/14/2025 10:15 AM EDT Office Visit Obstetrics and Gynecology - [address] [phone] Dee Oh MD [address], [place] Health Maintenance Due Date Last Done Comments Diabetes: Annual Foot Exam 1977 Diabetes: Annual Retina Eye Exam 1977 Hepatitis A Vaccines (1 of 2 - Risk 2-dose series) 1986 Hepatitis B Vaccines (1 of 3 - 19+ 3-dose series) 1986 Pneumococcal Vaccine: Pediatrics (0 to 5 Years) and At-Risk Patients (6 to 64 Years) (2 of 2 - PCV) 08/06/2012 08/06/2011 Depression Screening 08/15/2022 Diabetes: Blood Sugar Control Test (HGBA1C) 08/15/2022 01/25/2018 HIV Screening 08/15/2022 Social Influencers of Health Screening 08/15/2022 Cholesterol Screening (Lipid Panel) 09/08/2022 09/08/2017 DTaP,Tdap,and Td Vaccines (2 - Td or Tdap) 11/10/2023 11/09/2013 COVID-19 Vaccine ( season) 2024 07/21/2021, 11/02/2020, 10/12/2020 Influenza Vaccine (#1) 2024 , 05/20/2018, 06/07/2017, Additional history exists Diabetes: Annual GFR (Glomerular Filtration Rate) 03/16/2025 03/16/2024, 01/25/2018 Hypertension/CHF/CAD Annual BMP Blood Test 03/16/2025 03/16/2024, 01/25/2018 Diabetes: Annual Urine Albumin-Creatinine Ratio (uACR) 06/20/2025 06/20/2024, 01/19/2018 Breast Cancer Screening 08/08/2026 08/08/20 24, 02/03/2024, 02/03/2024, Additional history exists Colorectal Cancer Screening: Colonoscopy 09/24/2027 09/24/2017 Cervical Cancer Screening: HPV 12/29/2028 12/30/2023 Zoster Vaccines Completed 12/11/2020, 07/08/2020 Hepatitis C Screening Completed 06/20/2024, 024 HIB Vaccines Aged Out No longer eligi ble based on patient's age to complete this topic HPV Vaccines Aged Out No longer eligi ble based on patient's age to complete this topic IPV Vaccines Aged Out No longer eligi ble based on patient's age to complete this topic MMR Vaccines Aged Out No longer eligi ble based on patient's age to complete this topic Meningococcal ACWY Vaccine Aged Out N o longer eligible based on patient's age to complete this topic RSV Immunization Patients Under 20 months Aged Out No longer eligible based on patient's age to complete this topic Varicella Vaccines Aged Out No longer eligible based on patient's age to complete this topic Procedures Procedure Name Priority Date/Time Associated Diagnosis Comments POC WET M[place] Routine 09/15/2024 1:45 PM EST Orly vaginitis MG MAMMO DIAGNOSTIC ADDL VIEWS RIGHT Routine 08/08/2024 9:45 AM EST Other abnormal and inconclusive findings on diagnostic imaging of breast HM HPV Routine 12/30/2023 ANNUAL BMP BLOOD TEST Routine 01/25/2018 HEMOGLOBIN A1C Routine 01/25/2018 HM URINE ALBUMIN CREATININE RATIO Routine 01/19/2018 HM COLONOSCOPY Routine 09/24/2017 LIPID PANEL Routine 09/08/2017 from Last 3 Months or Most Recently Relevant to Health Maintenance Results * (ABNORMAL) POC Wet [place] (09/15/2024 [...] POINT OF CARE TEST E NTER/EDIT ORDERABLES * MG Mammo Diagnostic Addl Views Right (08/08/2024 9:45 AM EST) Anatomical Region Laterality Modality Breast Right Mammography 08/08/2024 9:47 AM EST Impressions 08/08/2024 10:10 AM EST No mammographic evidence of malignancy. ??Stable benign findings as described. ??Bilateral mammogram in January 2024 to resume screening is recommended. ??This has been scheduled. BI-RADS: ??2-benign RECOMMENDATION(S): 1: Routine screening mammogram BILATERAL in 6 months. Mammo Location: [facility], [address] [place] [address], [phone], . -------- FINAL REPORT -------- Dictated By: Jill Cruz Dictated Date: 08/08/2024 09:47 ET Assigned Physician: Jill Cruz Reviewed and Electronically Signed By: Jill Cruz Signed Date: 08/08/2024 10:10 ET Workstation ID: [id number] Transcribed By: Self Edit Transcribed Date: 08/08/2024 09:53 ET Narrative 08/08/2024 10:10 AM EST EXAM: MAMMO DIAGNOSTIC ADDL VIEWS RIGHT EXAM DATE: 08/08/2024 9:27 AM HISTORY: ??Six-month follow-up right breast calcifications. COMPARISON: . TECHNIQUE: Magnification views right breast in the CC and ML projections. ??CC view right breast displacement view utilizing Tomosynthesis and computer aided detection. ??All TISSUE DENSITY: b. There are scattered areas of fibroglandular density. FINDINGS: Coarse calcifications in the central/lateral posterior breast at the edge of the indented implant surface are again noted, and are not significantly changed. Another focal indentation containing fat density in the lower anterior implant is unchanged. The silicone right breast implant is partially visualized. There is a biopsy clip in the retroareolar right breast. Procedure Note Jill Cruz MD - 08/08/2024 EXAM: MAMMO DIAGNOSTIC ADDL VIEWS RIGHT EXAM DATE: 08/08/2024 9:27 AM HISTORY: Six-month follow-up right breast calcifications. COMPARISON: . TECHNIQUE: Magnification views right breast in the CC and ML projections.CC view right breast displacement view utilizing Tomosynthesis andcomputer aided detection. All TISSUE DENSITY: b. There are scattered areas of fibroglandular density. FINDINGS: Coarse calcifications in the central/lateral posterior breast at the edgeof the indented implant surface are again noted, and are not significantlychanged. Another focal indentation containing fat density in the lower anteriorimplant is unchanged. The silicone right breast implant is partially visualized. There is a biopsy clip in the retroareolar right breast. IMPRESSION: No mammographic evidence of malignancy. Stable benign findings asdescribed. Bilateral mammogram in January 2024 to resume screening isrecommended. This has been scheduled. BI-RADS: 2-benign RECOMMENDATION(S): 1: Routine screening mammogram BILATERAL in 6 months. Mammo Location: [facility], [address] [place] [address], [phone], . -------- FINAL REPORT -------- Dictated By: Jill Cruz Dictated Date: 08/08/2024 09:47 ET Assigned Physician: Jill Cruz Reviewed and Electronically Signed By: Jill Cruz Signed Date: 08/08/2024 10:10 ET Workstation ID: [id number] Transcribed By: Self Edit Transcribed Date: 08/08/2024 09:53 ET Manuel Stephenson MD IMG BI PROCEDURES * Cervical Cancer Screening: HPV (12/30/2023) [facility] Cervical Cancer Screening: HPV Negative, Abstracted Historical Provider [facility] Annual BMP Blood Test (01/25/2018) [facility] Annual BMP Blood Test Abstracted Historical Provider [facility] (ABNORMAL) Hemoglobin A1c (01/25/2018) [facility] Hemoglobin A1C 6.7(A) 4.0 - 6.0 % Blood Venous blood specimen / Unknown Historical Provider LAB BLOOD ORDERAB LES * Urine Albumin Creatinine Ratio (01/19/2018) [facility] Urine Albumin Creatinine Ratio Abstraction Historical Provider [facility] Colonoscopy (09/24/2017) [facility] Colonoscopy No Interpretation , Abstracted Anatomical Region Laterality Modality Other Historical Provider [facility] Lipid panel (09/08/2017) [facility] LDL/HDL Ratio 2 0 - 4 Triglycerides 129 0 - 150 mg/dL Cholesterol 162 0 - 200 mg/dL HDL 76 40 mg/dL LDL Cholesterol 60 0 - 100 mg/dL Blood Venous blood specimen / Unknown Historical Provider LAB BLOOD ORDERAB LES from Last 3 Months or Most Recently Relevant to Health Maintenance Care Teams Field Auditor Relationship Specialty Start Date End Date Physician, No Pcp PCP - General 10/06/24
[2024-10-13 11:38] LABS: Basophils Absolute Auto 0.1 X10*3/uL (0.0-0.2); Basophils Percent Auto 0.5 % (0-2); Eosinophils Absolute Auto 0.2 X10*3/uL (0.0-0.4); Eosinophils Percent Auto 1.6 % (0-4); Hemoglobin 12.5 g/dl (12.0-16.0); Imm Gran Abs Auto 0.08 X10*3/uL (0.00-0.03); Imm Gran Pct Auto 0.5 % (0.0-0.4); Lymphocytes Absolute Auto 1.8 X10*3/uL (1.2-4.9); Mean Corpuscular HGB Conc 32.9 g/dl (31.0-35.0); Mean Corpuscular Hemoglobin 28.9 pg (27.0-33.0); Mean Corpuscular Volume 87.8 fL (80.0-98.0); Mean Platelet Volume 9.6 fL (9.4-12.3); Monocytes Percent Auto 6.9 % (2-11); Neutrophils Absolute Auto 11.5 x10*3/uL (2.0-8.3); Neutrophils Percent Auto 78.5 % (45-73); Platelet Count 357 X10*3/uL (160-400); Red Blood Count 4.33 X10*6/uL (4.20-5.50); Red Cell Distribution Width 13.8 % (11.0-16.0); White Blood Count 14.6 X10*3/uL (4.8-10.8)
[2024-10-13 12:11] LABS: Parathyroid Hormone Intact 142.4 pg/mL (8.7-77.1)
[2024-10-13 12:14] LABS: Albumin Level 4.2 g/dL (3.5-5.0); Anion Gap 15 (12-20); Blood Urea Nitrogen 21 mg/dL (9-16); Carbon Dioxide 22 mmol/L (22-29); Chloride 103 mmol/L (96-108); Estimated Glomerular Filt Rate 39; Phosphorus 2.7 mg/dL (2.7-4.5); Sodium 136 mmol/L (135-145)
[2024-10-13 12:19] LABS: Magnesium 1.4 mg/dL (1.6-2.6)
[2024-10-13 12:26] LABS: Appearance Urine Clear; Color Urine Yellow; Glucose Urine UA Negative (Negative); Leukocyte Esterase Urine Negative (Negative); Nitrite Urine Negative (Negative); Specific Gravity - Urine <= 1.005 (1.005-1.025); Urine Blood Negative (Negative); Urine Ketones Negative (Negative); Urine Protein Negative (Neg-Trace)
[2024-10-13 14:01] LABS: Creatinine Urine 20.03 mg/dL; Microalbumin Urine < 5.0 mg/L; Total Protein Urine Random < 7 mg/dL (<12)
== END 2024-10-13 10:16 | disposition home or self-care (01) ==
LOC: HO.LAB 10:15
PROVIDERS: Visit Provider Internal Medicine Nephrology
DX: N18.32 Chronic kidney disease, stage 3b (principal); N25.0 Renal osteodystrophy; I12.9 Hypertensive chronic kidney disease with stage 1 through stage 4 chronic kidney disease, or unspecified chronic kidney disease
CPT/HCPCS: 36415; 80051; 81003; 82040; 82043; 82306; 82310; 82565; 82570; 83735; 83970; 84100; 84156; 84520; 85025

== ENCOUNTER 2025-01-31 10:33 | Outpatient (REF) | payer MEDICARE, MEDICAID, SELFPAY ==
[2025-01-31 11:00] LABS: MANUAL DIFF FLAG NO
--- OUTSIDE RECORDS SUMMARY | 2025-01-31 11:36 | XMS_ITS | Data Portability ---
Author Organization [facility], [address] Address [address] [place] [address] Care Team Providers Care Target Developer Name Role Phone SALINA LOPEZ Primary Care Provider [phone] Assessment No assessment recorded. Plan of Treatment Reminders Order Date Submit Date Provider Last Modified By Organization Details Last Modified Time Details Appointments None recorded . Lab None recorded . Referral orthoped ic surgeon referral - avulsion fracture of right ankle(fi bula) mildly displace . need further evaluati on and treatmen t. [facility] [address] [place], [address], 3 14:23:15 Procedures None recorded . Surgeries None recorded . Imaging XR, ankle, 3 or more view 2022 023 [facility], [address] [place], [address], 3 14:55:16 Medication Orders None recorded . Patient TargetsNo targets recorded. Patient Instructions Encounter Date Encounter Id Patient Instructions Last Modified By Organization Details Last Modified Time 03/26/2023 [id number] learning about rice (rest, ice, compression, and [...] OR POSSIBLE MRI WITH REFERRAL TO SPECIALIST [email or web address] Not available 03/26/2023 13:52:08 Reason for Referral [...] Abnormal Flag Note LastModifiedBy Organization Detail LastModifiedTime 03/26/2003/26/2023 XR, ankle , 3 or more view No observ ation record ed. [facility] [address] [place], [address], 03/26/2023 17:16:46 Result Notes None recorded. Problems Name Problem SNOMED Code Status Onset Date Resolution Date Notes Provider Name and Address Organization Details Recorded Time Hypertensive disorder 39274271 Active 2022 Monse Jaime null, [place] - [facility] 3 13:28:40 Diabetes mellitus 49696055 Active 2022 Monse Palmer null, PA - [facility] 3 13:28:47 Kidney disease 50579833 Active 2022 stage 3 Monse Jaime null, PA - [facility] 3 13:28:56 Problem Notes None recorded. Medical Equipment None Reported. Allergies Allergen ID Allergen Name Allergen Category Reaction Reaction Severity Criticality Documentation Date Start Date Code Code System Note Provider Name and Address Organization Details Recorded Time 746868 amoxicill in medicatio n rash Not available Not available 03/26/2023 723 RxNorm Monse Jaime null, PA - [facility] 3 13:28:13 [...] completed Not Available Not Available Not Available OneToLiveQoS Ultra Test strips USE 1 STRIP TWICE [...] Not Available Not Available No t Available OneToLiveQoS Ultra2 Meter USE TO TEST BLOOD SUGER ONCE A DAY active Not Available Not Available No t Available OneTouch Delica Plus Lancet 33 gauge USE 1 LANCET TO CHECK BLOOD SUGAR ONCE DAILY active Not Available Not Available No t Available Vitals Date Recorded Body height Body mass index (BMI) Body weight Oxygen saturation Oxygen saturation in Arterial blood by Pulse oximetry Heart rate Respiratory rate Body temperature Systolic blood pressure Diastolic blood pressure Provider Name and Address Organization Details Last Updated DateTime 3 170.18 cm 28.2 kg/m2 91346.6 3 g 97 % 97 % 104 /min 20 /min 98.1 [degF] 109 mm[Hg] 72 mm[Hg] Monse [facility] 3 13:30:42 Social History Question Answer Notes LastModified by Organizat ion Details LastModified Time Tobacco Smoking Status Never Smoker [facility] 03/26/2023 13:29:04 Have You Had Direct Contact, Or Contact During Intimacy, With Monkeypox Rash, Scabs, Or Body Fluids From A Person With Monkeypox? No Information not available 03/26/2023 Have You Recently Traveled Abroad? No Information not available 03/26/2023 Sex: Unknown Functional Status Question Answer Note LastModified by Organizat ion Details LastModified Time Do you use any illicit or recreational drugs? No Information not available 03/26/2023 Do you or have you ever used any other forms of tobacco or nicotine? No Information not available 03/26/2023 What is your level of alcohol consumption? None Information not available 03/26/2023 Mental Status None recorded. Family History Relationship [...] Recorded Time zoster recombinant 1 completed Monse Palmer null, PA - [facility] 03/26/2023 13:28:06 zoster recombinant 0 completed Monse Jaime null, PA - [facility] 03/26/2023 13:28:06 COVID-19, mRNA, LNP-S, PF, 30 mcg/0.3 mL dose 1 completed Monse Palmer null, PA - [facility] 03/26/2023 13:28:06 COVID-19, mRNA, LNP-S, PF, 30 mcg/0.3 mL dose 1 completed Monse Palmer null, PA - [facility] 03/26/2023 13:28:06 COVID-19, mRNA, LNP-S, PF, 30 mcg/0.3 mL dose 1 completed Monse Palmer null, PA - [facility] 03/26/2023 13:28:06 pneumococcal polysaccharide PPV23 1 completed Monse Palmer null, PA - [facility] 03/26/2023 13:28:06 Tdap 4 completed Monse Palmer null, PA - [facility] 03/26/2023 13:28:06 Influenza, split virus, trivalent, preservative 2 completed Monse Palmer null, PA - [facility] 03/26/2023 13:28:06 Influenza, split virus, trivalent, preservative 5 completed Monse Palmer null, PA - [facility] 03/26/2023 13:28:06 Influenza, split virus, trivalent, preservative 3 completed Monse Palmer null, PA - [facility] 03/26/2023 13:28:06 Influenza, split virus, trivalent, preservative 4 completed Monse Palmer null, PA - [facility] 03/26/2023 13:28:07 Influenza, split virus, trivalent, preservative 1 completed Monse Jaime null, PA - [facility] 03/26/2023 13:28:07 Influenza, split virus, trivalent, PF 6 completed Monse Jaime null, PA - [facility] 03/26/2023 13:28:07 Influenza, split virus, quadrivalent, PF 0 completed Monse Palmer null, PA - [facility] 03/26/2023 13:28:07 Influenza, split virus, quadrivalent, PF 8 completed Monse Jaime null, PA - [facility] 03/26/2023 13:28:07 Past Encounters Encounter ID Performer Location Encounter Start Date Encounter Closed Date Diagnosis/Indication Diagnosis SNOMED-CT Code Diagnosis ICD10 Code Diagnosis Note [id number] [address] [address] [address] [address] 07/17/2019 09:19:36 07/17/2019 09:44:27 [id number] [place] [address] [address] 03/26/2023 13:14:04 03/26/2023 14:21:33 Pain of right ankle joint 3408344597 9602593 M25.571 Closed fra cture of lateral malleolus 01310090 S82.61XA Health Concerns Section Related Observation LastModified by Organization Detai ls LastModified Time None Recorded Concern Status LastModified by Organization Details LastModified Time None Recorded Advance Directives Directive None Recorded Payers Insurance Date Sequence Insurance Name Policy Number Policy Rooney Covered Member ID Rooney Member ID Guarantor Name 07/05/2023 1 [employer] (MEDICARE REPLACEMENT HMO) February [id number] February07/05/2023 2 [place] February Roberto [id number] February Notes Date Note Type Note Provider [...] Isaac NP [address] [place], [address], [place] - [facility] 03/26/2023 17:05:16 OBGyn Episode No OBEpisode recorded.
[2025-01-31 11:53] LABS: Basophils Absolute Auto 0.1 X10*3/uL (0.0-0.2); Basophils Percent Auto 1.1 % (0-2); Eosinophils Absolute Auto 0.2 X10*3/uL (0.0-0.4); Eosinophils Percent Auto 2.5 % (0-4); Hemoglobin 13.3 g/dl (12.0-16.0); Imm Gran Abs Auto 0.02 X10*3/uL (0.00-0.03); Imm Gran Pct Auto 0.3 % (0.0-0.4); Lymphocytes Absolute Auto 2.1 X10*3/uL (1.2-4.9); Mean Corpuscular HGB Conc 32.4 g/dl (31.0-35.0); Mean Corpuscular Hemoglobin 28.5 pg (27.0-33.0); Mean Corpuscular Volume 87.8 fL (80.0-98.0); Mean Platelet Volume 9.7 fL (9.4-12.3); Monocytes Absolute Auto 0.4 X10*3/uL (0.1-1.2); Monocytes Percent Auto 6.2 % (2-11); Neutrophils Absolute Auto 3.7 x10*3/uL (2.0-8.3); Neutrophils Percent Auto 57.9 % (45-73); Platelet Count 410 X10*3/uL (160-400); Red Blood Count 4.67 X10*6/uL (4.20-5.50); Red Cell Distribution Width 13.3 % (11.0-16.0); White Blood Count 6.4 X10*3/uL (4.8-10.8)
[2025-01-31 12:27] LABS: Appearance Urine Clear; Color Urine Yellow; Glucose Urine UA Negative (Negative); Leukocyte Esterase Urine Trace (Negative); Nitrite Urine Negative (Negative); PH 5.5 (5.0-9.0); Specific Gravity - Urine <= 1.005 (1.005-1.025); UMIC TRIGGER UACC YES; Urine Blood Negative (Negative); Urine Ketones Negative (Negative); Urine Protein Negative (Neg-Trace)
[2025-01-31 12:53] LABS: Albumin Level 4.7 g/dL (3.5-5.0); Anion Gap 11 (12-20); Blood Urea Nitrogen 20 mg/dL (9-16); Calcium 9.6 mg/dL (8.4-10.2); Carbon Dioxide 27 mmol/L (22-29); Chloride 105 mmol/L (96-108); Estimated Glomerular Filt Rate 31; Phosphorus 3.1 mg/dL (2.7-4.5); Potassium 4.4 mmol/L (3.3-5.1); Sodium 139 mmol/L (135-145)
[2025-01-31 13:02] LABS: Vitamin D 25-OH Total 50.5 ng/mL (>30)
[2025-01-31 13:10] LABS: Creatinine Urine 15.41 mg/dL; Microalbumin Urine < 5.0 mg/L; Total Protein Urine Random < 7 mg/dL (<12)
[2025-01-31 13:17] LABS: WBC Urine 0-5 /HPF (0-5)
[2025-01-31 13:18] LABS: Bacteria Urine None Seen (None Seen); Hyaline Casts Urine 0-2 /LPF (0-2); RBC Urine 0-2 /HPF (0-2); Squamous Epithelial Cell Urine 0-2 /HPF (0-2)
[2025-01-31 14:44] LABS: Parathyroid Hormone Intact 105.6 pg/mL (8.7-77.1)
== END 2025-01-31 10:34 | disposition home or self-care (01) ==
LOC: HO.LAB 10:33
PROVIDERS: PCP Internal Medicine; Visit Provider Internal Medicine Nephrology
DX: N18.32 Chronic kidney disease, stage 3b (principal)
CPT/HCPCS: 36415; 80051; 81001; 81003; 82040; 82043; 82306; 82310; 82565; 82570; 83735; 83970; 84100; 84156; 84520; 85025

== ENCOUNTER 2025-04-19 15:35 | Outpatient (REF) | payer MEDICARE, MEDICAID, SELFPAY ==
[2025-04-19 15:56] LABS: MANUAL DIFF FLAG NO
--- OUTSIDE RECORDS SUMMARY | 2025-04-19 15:57 | XMS_ITS | Clinical Summary ---
Author Organization [facility] Address [address] [id number] Care Team Providers Care Assistant City Attorney Name Role Phone Brigida Tucker MD Primary Care Provider [phone] Allergies Active Allergy Reactions Criticality Noted Date [...] (1 of 2) 2017 Influenza Vaccine (#1) 2025 Pneumococcal Vaccine Aged Out No long er eligible based on patient's age to complete this topic RSV Ped < 20 months Aged Out No longe r eligible based on patient's age to complete this topic Care Teams Assistant City Attorney Relationship Specialty Start Date End Date Brigida Tucker MD PCP - General Internal Medicine 04/30/17
--- OUTSIDE RECORDS SUMMARY | 2025-04-19 15:57 | XMS_ITS | Encounter Summary ---
Author Organization [facility] Address [address] [place] [address] Phone Care Team Providers Care Hadoop Java Developer Name Role Phone Manuel Stephenson MD Primary Care Provider [phone] Encounter Details Date Type Department Care Team (Late st Contact Info) Description 12/21/2022 Telephone [facility] [address] [place] [address] Grace Hall MA Social History Tobacco [...] Pt called, she is currently [place] [facility] [place] [facility] due to a bad [...] staff onsite. Please call her back at [phone] when you get the chance thank you. This message has been sent through [employer] as well. documented in this encounter Plan of Treatment Upcoming Encounters Date Type Department Care Team (Late st Contact Info) Description 04/24/2025 2:45 PM EDT Office Visit [facility]. [address] [address] Tor Johnson MD [address] [address] documented as of this encounter Visit Diagnoses Not on filedocumented in this encounter Care Teams Hadoop Java Developer Relationship Specialty Start Date End Date Manuel Stephenson MD [address] [place] [address] PCP - General 09/16/20 documented as of this encounter
--- OUTSIDE RECORDS SUMMARY | 2025-04-19 15:57 | XMS_ITS | Clinical Summary ---
Author Organization [facility] [address] [place] [address] [address] [place] [address] Phone Care Team Providers Care [employer] Animal Caretaker Name Role Phone Manuel Stephenson MD Primary Care Provider [phone] Allergies Active Allergy Reactions Criticality Noted Date Comments Amoxicillin Other 02/22/2012 Amoxicillin-Pot Clavulanate Other Medium 08/21/20 10 Latex Other 01/27/2010 Inflammation in mouth and vaginal area Propylene Glycol Hives 09/06/2024 Medications blood glucose control, normal solution For testing glucose strips 05/07/20 11 Active blood-glucose calib. control (BLOOD-GLUCOSE CALIBRAT CONTROL MISC) USE DIRECTED 05/07/20 11 Active glucose blood test strip USE TO TEST WHEN WAKING UP (PRE-BREAKFAST) AND 2 HOURS AFTER A MEAL 01/01/20 15 Active lancets lancets USE TO TEST WHEN WAKING UP (PRE-BREAKFAST) AND 2 HOURS AFTER A MEAL 01/01/20 15 Active ONETOUCH DELICA LANCETS MISC Apply 1 Stick topically 2 times daily. 05/07/20 11 Active TORSEMIDE ORAL Take by mouth. Active atorvastatin (LIPITOR) 40 mg tablet Take 1 Tab by mouth daily. 04/13/20 18 Active buPROPion XL (WELLBUTRIN XL) 150 mg 24 hr tablet Take 1 Tab by mouth daily. 09/22/19 13 Active buPROPion XL (WELLBUTRIN XL) 300 mg 24 hr tablet Take 300 mg by mouth every morning. Active clonazePAM (KlonoPIN) 1 mg tablet Take 1 Tab by mouth daily. 11/10/19 14 Active cloNIDine (CATAPRES) 0.1 mg tablet TAKE 1 TABLET BY MOUTH TWICE DAILY 05/06/20 18 Active dulaglutide (Trulicity) 0.75 mg/0.5 mL pen injector injection Inject into the skin. Active FLUoxetine (PROzac) 10 mg capsule Take 10 mg by mouth daily. 3 daily Active fluticasone propionate (FLONASE) 50 mcg/actuation nasal spray 1 [place] by Each Nare route daily. 06/01/20 14 Active lisinopriL (PRINIVIL,ZESTR IL) 20 mg tablet Take 1 Tab by mouth daily. 09/27/19 18 Active metFORMIN (GLUCOPHAGE) 500 mg tablet TAKE 2 TABLETS BY MOUTH TWICE DAILY WITH MEALS 03/25/20 18 Active propranolol LA (Inderal LA) 60 mg 24 hr capsule Take 1 Cap by mouth daily. 05/05/20 18 Active valsartan (DIOVAN) 160 mg tablet Take 160 mg by mouth daily. Active ziprasidone (GEODON) 80 mg capsule 1 capsule daily Acti ve nystatin-triamc inolone (MYCOLOG II) ointment 3-4x/day to affected area 30 g 1 09/15/19 25 Active terconazole (TERAZOL 3) 80 mg vaginal suppository Insert 1 suppository (80 mg total) into the vagina at bedtime. Apply pv x3days 1 suppository 1 09/15/19 25 Active Active Problems Problem Noted Date Diagnosed Date Mammographic fibroglandular density, bilateral b reasts 02/03/2024 Overview (09/11/2024): 01/2024 Left breast: Amorphous calcifications, some of the coarser than in January 2023, located in the surface of the implant. Probably benign. A 6-month follow-up is recommended with spot magnified compression views. BI-RADS: Category 3: Probably benign Findings and recommendations discussed with the patient at completion of the studies Opioid abuse, in remission ([facility] V24, [facility] V28) 05/14/2016 Overview (09/11/2024): 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 Primary osteoarthritis of left knee 01/23/2016 Recurrent Clostridium difficile diarrhea 015 Clostridium difficile diarrhea 06/02/2015 Sebaceous cyst 08/16/2012 Bunion 05/16/2012 Overview (09/11/2024): Both feet. S/p bunionectomy right foot but recurred Migraine 12/28/2011 Controlled diabetes mellitus type II without complication ([facility] V24, [facility] V28) 05/04/2011 Fatty liver 07/24/2010 Overview (09/11/2024): Noted on CT abd 11/2009 WILSON (dyspnea on exertion) 03/25/2010 Overview (09/11/2024): ECHO, PFT unremarkable 02/13 Pure hypercholesterolemia 03/25/2010 Alcohol abuse, in remission 02/10/2010 Overview (09/11/2024): ETOH pancreatitis 11/2009; another episode 01/2015. As of 05/2016 - drinks only on weekends. Borderline personality disorder (CMS/HCC V24, CM S/HCC V28) 01/27/2010 Overview (09/11/2024): Diagnosed by a psychiatrist with bipolar, More depression than manic; however 2012 diagnosed with borderline personality d/o by [employer] HTN (hypertension), benign 01/27/2010 Encounters Date Type Department Care Team Description 02/14/2025 10:15 AM EDT Office Visit Obstetrics and Gynecology - [address] [phone] Dee Oh MD Encounter for gynecological examination without abnormal finding (Primary Dx) 02/13/2025 Telephone Obstetrics and Gynecology - [address] [phone] Dee Oh MD Referral 02/05/2025 10:20 AM EDT - 02/05/2025 11:59 PM EDT Hospital Encounter Radiology Department - [address] [phone] Encounter for screening mammogram for breast cancer Discharge Disposition: Home or Self Care from [...] MOLE REMOVAL PROCEDURE: HISTORICAL MOLE (REMOVAL OF) OTHER SURGICAL HISTORY 1996 PROCEDURE: IMPLANT BREAST SILICONE/EQ; COMMENT: silicone implants BREAST BIOPSY 01/08/2021 Right PROCEDURE: BX BREAST; PERC NEEDLE CORE W/IMAG GUID BREAST ENHANCEMENT SURGERY W IMPLANT Bilateral 1996 Medical History Medical History Date Comments Bipolar disorder ([facility]/HCC V2 4, [facility]/HCC V28) 01/27/2010 DX:Bipolar disorder (HCC) HTN (hypertension), benign 01/27/2010 DX:HT N (hypertension), benign ETOH abuse 02/10/2010 DX:ETOH abuse Pancreatitis 02/10/2010 DX:Pancreatitis Melanoma ([facility]/HCC V24, CMS/HCC V28) 02/10/2010 DX:Melanoma (HCC) Pure hypercholesterolemia 03/25/2010 DX:Pur e hypercholesterolemia WILSON [...] cyst 08/16/2012 DX:Sebaceous cys t Malignant melanoma (CMS/HCC V24, CMS/HCC V28) 07/07/2012 DX:Malignant melanoma (HCC); COMMENT: Malignant melanoma 1994 posterior aspect left thigh (superficial spreading breath low 0.4 mm [place] level I per patient's recollection) Bunion 05/16/2012 DX:Bunion; COMME NT: Both feet. S/p bunionectomy right foot but recurred Migraine 12/28/2011 DX:Migraine Controlled diabetes mellitus type II without complication (CMS/HCC V24, CMS/HCC V28) 05/04/2011 DX:Controlled diabetes melli tus type II without complication ([facility]) History of pancreatitis 07/24/2010 DX:Histo ry of pancreatitis; COMMENT: November 2009, [facility], thought to be alcohol-induced Alcohol abuse 02/10/2010 DX:Alcohol abuse ; COMMENT: ETOH pancreatitis 11/2009; another episode 01/2015 Borderline personality disor wesly (CMS/HCC V24, CMS/HCC V28) 01/27/2010 DX:Borderline personality d isorder ([facility]); COMMENT: Diagnosed by a psychiatrist with bipolar, More depression than manic; however 2012 diagnosed with borderline personality d/o by [employer] Basal cell carcinoma of skin 07/30/2015 DX: Basal cell carcinoma of skin History of basal cell carcinoma 07/30/2015 DX:History of basal cell carcinoma; COMMENT: BCC 07/21 forehead (nodular) History of dysplastic nevus 07/18/2013 DX:H istory of dysplastic nevus; COMMENT: Dysplastic nevus 07/19 left leg (mild atypia) History of malignant melanoma of skin 07/07/2012 DX:History of malignant melanoma of skin; COMMENT: Malignant melanoma 1994 posterior aspect left thigh (superficial spreading breath low 0.4 mm [place] level I per patient's recollection). Followed by [facility] Family History Medical History Relation Name [...] drink = 0.6 oz pur e alcohol) Comments No Sex and Gender Information Value Date Recorded Sex Assigned at Not on file Legal Sex Female 10:17 AM EST Gender Identity Not on file Sexual Orientation Not on file Obstetrics History Para Term AB IAB SAB Ectopic Multiple Livin g Live Births 1 Date Outcome GA Total Labor Labor//3rd Weight Sex Type Anes PTL Antonina A1 A5 Name Clin Term Last Filed Vital Signs Vital Sign Reading Time Taken Comments Blood Pressure 145/75 02/14/2025 10:15 AM EDT Pulse 88 02/14/2025 10:15 AM EDT Temperature - - Respiratory Rate 14 02/14/2025 10:15 AM EDT Oxygen Saturation - - Inhaled Oxygen Concentration - - Weight 80.6 kg (177 lb 9.6 oz) 02/14/2025 10:15 AM EDT Height 170.2 cm (5' 7 ) 02/14/2025 10:15 AM EDT Body Mass Index 27.82 02/14/2025 10:15 AM EDT Plan of Treatment Upcoming Encounters Date Type Department Care Team (Late st Contact Info) Description 06/22/2025 11:15 AM EDT Appointment Bone Density - [place] [address] [place] [address] Health Maintenance Due Date Last Done Comments Diabetes: Annual Foot Exam 1977 Diabetes: Annual Retina Eye Exam 1977 Hepatitis A Vaccines (1 of 2 - Risk 2-dose series) 1986 Hepatitis B Vaccines (1 of 3 - 19+ 3-dose series) 1986 Pneumococcal Vaccine: 50+ Years (2 of 2 - PCV) 08/06/2012 08/06/2011 Diabetes: Blood Sugar Control Test (HGBA1C) 08/15/2022 01/25/2018 HIV Screening 08/15/2022 Social Influencers of Health Screening 08/15/2022 Cholesterol Screening (Lipid Panel) 09/08/2022 09/08/2017 DTaP,Tdap,and Td Vaccines (2 - Td or Tdap) 11/10/2023 11/09/2013 COVID-19 Vaccine ( season) 2024 07/21/2021, 11/02/2020, 10/12/2020 Diabetes: Annual GFR (Glomerular Filtration Rate) 03/16/2025 03/16/2024, 01/25/2018 Hypertension/CHF/CAD Annual BMP Blood Test 03/16/2025 03/16/2024, 01/25/2018 Influenza Vaccine (#1) 2025 , 05/20/2018, 06/07/2017, Additional history exists Diabetes: Annual Urine Albumin-Creatinine Ratio (uACR) 01/31/2026 01/31/2025, 06/20/2024, 01/19/2018 Breast Cancer Screening 02/05/2027 02/06/20, 08/08/2024, 02/03/2024, Additional history exists Colorectal Cancer Screening: Colonoscopy 09/24/2027 09/24/2017 Cervical Cancer Screening: HPV 12/29/2028 12/30/2023 Zoster Vaccines Completed 12/11/2020, 07/08/2020 Hepatitis C Screening Completed 06/20/2024, 024 Depression Screening Completed 02/07/2025 HIB Vaccines Aged Out No longer eligi [...] patient's age to complete this topic Meningococcal B Vaccine Aged Out No l onger eligible based on patient's age to complete this topic RSV Immunization Patients Under 20 months Aged Out No longer eligible based on patient's age to complete this topic Varicella Vaccines Aged Out No longer eligible based on patient's age to complete this topic Procedures Procedure Name Priority Date/Time Associated Diagnosis Comments MG MAMMO DIGITAL SCREENING W JAYSON BILAT Routine 02/05/2025 10:27 AM EDT Encounter for screening mammogram for breast cancer HPV Routine 12/30/2023 ANNUAL BMP BLOOD TEST Routine 01/25/2018 HEMOGLOBIN A1C Routine 01/25/2018 URINE ALBUMIN CREATININE RATIO Routine 01/19/2018 COLONOSCOPY Routine 09/24/2017 LIPID PANEL Routine 09/08/2017 from Last 3 Months or Most Recently Relevant to Health Maintenance Results * MG Mammo Digital Screening w Jayson bilat (02/05/2025 10:27 AM EDT) Anatomical Region Laterality Modality Breast Bilateral Mammography 02/05/2025 3:16 PM EDT Impressions 02/05/2025 3:21 PM EDT Benign. BI-RADS CATEGORY: 1 - NEGATIVE RECOMMENDATION: Screening bilateral mammogram is recommended in 1 year. Mammo Location: [facility], [address] [place] [address], [id number], . -------- FINAL REPORT -------- Dictated By: Jill Cruz Dictated Date: 02/05/2025 15:16 ET Assigned Physician: Jill Cruz Reviewed and Electronically Signed By: Jill Cruz Signed Date: 02/05/2025 15:21 ET Workstation ID: [id number] Transcribed By: Self Edit Transcribed Date: 02/05/2025 15:16 ET Narrative 02/05/2025 3:21 PM EDT CLINICAL: 59 years old, Female, routine annual exam. COMPARISON: Mammograms dating back to 11/27/2020 with most recent of 08/08/2024. TECHNIQUE: Bilateral MLO and CC views were obtained digitally with 3-D mammogram (digital breast tomosynthesis). Implant-displaced and [id number]-afvwrhazt imaging was performed. Computer-aided detection was utilized in evaluation of this exam (CAD). FINDINGS: The visualized silicone implants are intact. There is no evidence of suspicious mass or architectural distortion. No worrisome calcifications are evident. There is a biopsy clip in the right breast. There has been no significant change from prior exam(s). BREAST DENSITY: B - There are scattered areas of fibroglandular density. Procedure Note Jill Cruz MD - 02/05/2025 CLINICAL: 59 years old, Female, routine annual exam. COMPARISON: Mammograms dating back to 11/27/2020 with most recent of08/08/2024. TECHNIQUE: Bilateral MLO and CC views were obtained digitally with 3-Dmammogram (digital breast tomosynthesis). Implant-displaced [id number] imaging was performed. Computer-aided detection wasutilized in evaluation of this exam (CAD). FINDINGS: The visualized silicone implants are intact. There is no evidence of suspicious mass or architectural distortion. Noworrisome calcifications are evident. There is a biopsy clip in the rightbreast. There has been no significant change from prior exam(s). BREAST DENSITY: B - There are scattered areas of fibroglandular density. IMPRESSION: Benign. BI-RADS CATEGORY: 1 - NEGATIVE RECOMMENDATION: Screening bilateral mammogram is recommended in 1 year. Mammo Location: [place] [facility], [address] [place] [address], [id number], . -------- FINAL REPORT -------- Dictated By: Jill Cruz Dictated Date: 02/05/2025 15:16 ET Assigned Physician: Jill Cruz Reviewed and Electronically Signed By: Jill Cruz Signed Date: 02/05/2025 15:21 ET Workstation ID: [id number] Transcribed By: Self Edit Transcribed Date: 02/05/2025 15:16 ET Neena Ragland [facility] IM BI PROCEDURES Final Resul t * Cervical Cancer Screening: HPV (12/30/2023) Pathologist [facility] Cervical Cancer Screening: HPV Negative, Abstracted Result [facility] Provider HEALTH MAINTENANCE Final Result * Annual BMP Blood Test (01/25/2018) [facility] Annual BMP Blood Test Abstracted Result [facility] Provider HEALTH MAINTENANCE Final Result * (ABNORMAL) Hemoglobin A1c (01/25/2018) [facility] Hemoglobin A1C 6.7(A) 4.0 - 6.0 % Blood Venous blood specimen / Unknown Result [facility] Provider LAB BLOOD ORDERABLES Nicole l Result * Urine Albumin Creatinine Ratio (01/19/2018) [facility] Urine Albumin Creatinine Ratio Abstraction Result [facility] Provider HEALTH MAINTENANCE Final Result * Colonoscopy (09/24/2017) [facility] Colonoscopy No Interpretation , Abstracted Anatomical Region Laterality Modality Other Result [facility] Provider HEALTH MAINTENANCE Final Result * Lipid panel (09/08/2017) [facility] LDL/HDL Ratio 2 0 - 4 Triglycerides 129 0 - 150 mg/dL Cholesterol 162 0 - 200 mg/dL HDL 76 >=40 mg/dL LDL Cholesterol 60 0 - 100 mg/dL Blood Venous blood specimen / Unknown Result [facility] Provider LAB BLOOD ORDERABLES Nicole l Result from Last 3 Months or Most Recently Relevant to Health Maintenance Insurance [facility] MEDICAID - [place] Care Teams [employer] Animal Caretaker Relationship Specialty Start Date End Date Manuel Stephenson MD [address] [place] [phone] PCP - General Internal Medicine 02/13/25
[2025-04-19 16:01] LABS: Hematocrit 35.1 % (37.0-47.0); Hemoglobin 11.7 g/dl (12.0-16.0); Imm Gran Abs Auto 0.03 X10*3/uL (0.00-0.03); Imm Gran Pct Auto 0.3 % (0.0-0.4); Lymphocytes Absolute Auto 3.0 X10*3/uL (1.2-4.9); Mean Corpuscular HGB Conc 33.3 g/dl (31.0-35.0); Mean Corpuscular Hemoglobin 28.5 pg (27.0-33.0); Mean Corpuscular Volume 85.4 fL (80.0-98.0); NRBC Abs Auto 0.000 X10*3/uL (0.0-0.012); NRBC Pct Auto 0.0 /100WBC (0.0-0.2); Platelet Count 432 X10*3/uL (160-400); Red Blood Count 4.11 X10*6/uL (4.20-5.50); White Blood Count 9.6 X10*3/uL (4.8-10.8)
[2025-04-19 16:40] LABS: Parathyroid Hormone Intact 164.1 pg/mL (8.7-77.1)
[2025-04-19 16:42] LABS: Anion Gap 13 (12-20); Blood Urea Nitrogen 28 mg/dL (9-16); Calcium 9.1 mg/dL (8.4-10.2); Carbon Dioxide 24 mmol/L (22-29); Chloride 101 mmol/L (96-108); Estimated Glomerular Filt Rate 30; Potassium 4.3 mmol/L (3.3-5.1); Sodium 134 mmol/L (135-145)
== END 2025-04-19 15:36 | disposition home or self-care (01) ==
LOC: HO.LAB 15:35
PROVIDERS: PCP Internal Medicine; Visit Provider Internal Medicine Nephrology
DX: E11.21 Type 2 diabetes mellitus with diabetic nephropathy (principal); N25.0 Renal osteodystrophy; I10 Essential (primary) hypertension
CPT/HCPCS: 36415; 80051; 82306; 82310; 82565; 82570; 83970; 84520; 85025

== ENCOUNTER 2025-05-09 17:18 | Emergency (ER) | payer MEDICARE, MEDICAID, SELFPAY ==
--- NOTE | 2025-05-09 17:29 | ED.EPISTAXIS ---
History of Present Illness General Chief Complaint: Epistaxis Stated Complaint: nose bleed for 10 hrs Time Seen by Provider: 05/09/25 17:59 Source: patient Mode of arrival: ambulatory Limitations: no limitations History of Present Illness ED [facility] Narrative: 60-year-old woman reports prior history of cocaine use disorder and septal defect from that, states has had fairly involved ENT follow up, presenting with recurrent nosebleeds for the past 1 month without any digital trauma that she has been able to stop this bleeding has been ongoing she is not sure what Sloan. She is only on aspirate on home. Related Data Home Medications ?Medication ?Instructions ?Recorded ?Confirmed acetaminophen 500 mg tablet 1,000 mg PO BID PRN Pain 12/19/22 12/19/22 amlodipine 5 mg tablet 5 mg PO DAILY 12/19/22 12/19/22 atorvastatin 40 mg tablet 40 mg PO BEDTIME 12/19/22 12/19/22 bimatoprost 0.03 % drops with 1 drp topical BEDTIME 12/19/22 12/19/22 applicator, eyelash base bupropion HCl 150 mg 24 hr tablet, 150 mg PO DAILY 12/19/22 12/19/22 extended release bupropion HCl 300 mg 24 hr tablet, 300 mg PO DAILY 12/19/22 12/19/22 extended release clonazepam 0.5 mg tablet 0.25 mg PO QPM PRN Anxiety 12/19/22 12/19/22 clonazepam 0.5 mg tablet 0.5 mg PO BEDTIME 12/19/22 12/19/22 clonidine HCl 0.1 mg tablet 0.1 mg PO BID 12/19/22 12/19/22 fluoxetine 20 mg capsule 40 mg PO DAILY 12/19/22 12/19/22 ibuprofen 200 mg tablet 400 mg PO BID PRN Pain 12/19/22 12/19/22 lisinopril 20 mg tablet 20 mg PO DAILY 12/19/22 12/19/22 metformin 500 mg tablet 500 mg PO TID 12/19/22 12/19/22 mirtazapine 15 mg tablet 15 mg PO BEDTIME 12/19/22 12/19/22 multivitamin 1 tab PO DAILY 12/19/22 12/19/22 torsemide 10 mg tablet 10 mg PO DAILY 12/19/22 12/19/22 ziprasidone HCl 80 mg capsule 80 mg PO BEDTIME 12/19/22 12/19/22 Previous Rx's ?Medication ?Instructions ?Recorded cyclobenzaprine 5 mg tablet 5 mg PO TID #20 tabs 12/22/22 prednisone 20 mg tablet 20 mg PO BID #10 tabs 09/16/24 Allergies Allergy/AdvReac Type Severity Reaction Status Date / Time amoxicillin (AMOXICILLIN) Allergy Unknown FULL BODY Verified 05/09/25 17:31 RASH latex (LATEX) Allergy Unknown RAW Verified 05/09/25 17:31 propylene glycol Allergy Rash Verified 05/09/25 17:31 Review of Systems Constitutional: Constitutional: Reports as per [facility] Past Medical History Medical History (Updated 05/09/25 @ 18:44 by Ramone Mg DO) CKD (chronic kidney disease) stage 3, GFR 30-59 ml/min Anxiety and depression Diabetes Hypertension Social History Social History (System 11/09/24 @ 13:18 by Katy Macario) Household Members: None Housing: House Do you presently have visiting nurse or other home services: No Alcohol intake: never Comment: refusing alarms Patient Tobacco Use Status: Former Tobacco user Smoked in Last 30 Days: No Substance Use Type: Marijuana Advance Directives: No Advance Directives Information Provided: Yes service: No Current occupational status: unemployed Physical Exam Vital Signs: Vital Signs: Last Vital Signs Temp 97 F 05/09/25 17:30 Pulse 85 05/09/25 18:24 Resp 16 05/09/25 18:24 BP 131/75 05/09/25 18:24 Pulse Ox 94 05/09/25 18:24 O2 Del Method Room Air 05/09/25 18:24 BMI result Body Mass Index 28.0 Const: Other: Gen: ?Overall well-appearing patient HEENT: Anterior septal defect, left Nare inferior aspect of the nostril potential source of bleeding identified, no bleeding in the posterior pharynx Neck: Supple, no LAD Resp: ?No wheezing rales rhonchi no stridor moving air well Abd: ?Bowel sounds are present, no tenderness no rebound no rigidity MSK: FROM, strength 5/5 all extremities Skin: Warm, dry, intact, Neuro: ?Alert and oriented x3, moving upper and lower extremities symmetrically, no obvious facial asymmetry noted Course Course Course Narrative: This is a Rapid Medical Examination (RME) performed by Pavel Santos PA-C in triage. Full HPI, ROS, assessment and treatment plan per primary provider in the Main ED. Hx: 60 yo F here for eval of nose bleed intermittent x1 month, continuous today. no thinners, on baby aspirin. Plan: labs Medications Administered Discontinued Medications Generic Name Dose Route Start Last Admin Trade Name Zia PRN Reason Stop Dose Admin Silver Nitrate 2 appl 05/09/25 18:05 05/09/25 18:25 Silver Nitrate Applicator Stick..Ea. TOPICAL 05/09/25 18:06 2 appl ONCE ONE Administration Medical Decision Making Medical Decision Making [facility] Narrative: 60-year-old woman with remote history of cocaine use disorder with the anterior nasal septum, presenting with persistent nasal bleed, blood work to evaluate for anemia, she is not on blood thinners, her physical examination revealed some oozing from the left Sloan at the inferior aspect of her nare At some point patient was re-evaluated and was bleeding despite silver nitrate cautery and so left-sided 5.5 cm rhino rocket was administered Differential Diagnosis Differential Diagnoses: The differential diagnosis associated with the presentation includes (See above) Lab Data [facility] Lab Attestation statement: I reviewed the patient's lab results. 05/09/25 17:48 05/09/25 17:48 Labs: Lab Results 05/09/25 Range/Units 17:48 WBC 9.8 (4.8-10.8) X10*3/uL RBC 4.33 (4.20-5.50) X10*6/uL Hgb 12.2 (12.0-16.0) g/dl Hct 36.8 L (37.0-47.0) % MCV 85.0 (80.0-98.0) fL MCH 28.2 (27.0-33.0) pg MCHC 33.2 (31.0-35.0) g/dl RDW 13.4 (11.0-16.0) % Plt Count 400 (160-400) X10*3/uL MPV 9.6 (9.4-12.3) fL Immature Gran % (Auto) 0.3 (0.0-0.4) % Neut % (Auto) 58.5 (45-73) % Lymph % (Auto) 29.5 (20-40) % Cabell % (Auto) 8.4 (2-11) % Eos % (Auto) 2.4 (0-4) % Baso % (Auto) 0.9 (0-2) % Lymph # (Auto) 2.9 (1.2-4.9) X10*3/uL Cabell # (Auto) 0.8 (0.1-1.2) X10*3/uL Eos # (Auto) 0.2 (0.0-0.4) X10*3/uL Baso # (Auto) 0.1 (0.0-0.2) X10*3/uL Abs Immat Gran (auto) 0.03 (0.00-0.03) X10*3/uL Absolute Neuts (auto) 5.7 (2.0-8.3) x10*3/uL Absolute Nucleated RBC 0.000 (0.0-0.012) X10*3/uL Nucleated RBC % (auto) 0.0 (0.0-0.2) /100WBC Sodium 136 (135-145) mmol/L Potassium 4.4 (3.3-5.1) mmol/L Chloride 103 (96-108) mmol/L Carbon Dioxide 22 (22-29) mmol/L Anion Gap 15 (12-20) BUN 34 H (9-16) mg/dL Creatinine 1.88 H (0.5-1.4) mg/dL Estim Creat Clear Calc 35.7 Estimated GFR 27 Random Glucose 112 (60-115) mg/dL Calcium 9.2 (8.4-10.2) mg/dL Total Bilirubin 0.3 (0.0-1.0) mg/dL Direct Bilirubin < 0.1 (0.0-0.5) mg/dL AST 25 (5-31) U/L ALT 22 (0-31) U/L Alkaline Phosphatase 87 (39-117) U/L Total Protein 7.0 (6.5-8.0) g/dL Albumin 4.5 (3.5-5.0) g/dL Prescription Management I considered prescription management with: Antibiotic Procedures Epistaxis Control Time Out Performed: Yes Nostril: Yes left and Yes bilateral Nose prepped with: Yes oxymetazoline Direct inspection: Yes anterior source identified Clots removed by: Yes blowing nose Epistaxis treatment: Yes silver nitrate cautery and Yes nasal tampon Results of treatment: Yes bleeding controlled and Yes treatment well tolerated Complications: Yes none Discharge Plan Discharge Clinical Impression: Epistaxis Instructions: Nosebleed (ED) Additional Instructions: You were seen for nose bleed, I felt that you have left-sided source of bleeding, silver nitrate cautery was used you continue to have bleeding, rhino rocket was placed in the left Sloan, if you have some more bleeding or oozing you can administer up to 5 mL of saline into there portal, I would like you to see your ENT hopefully within the next 4 days, wheeze to prescribe antibiotics to prevent infections with these we no longer do but you should not keep the device in place without it being checked for more than 4-5 days, if you can not find follow up please come back to the ER. Prescriptions: No Action multivitamin Tablet 1 tab PO DAILY ziprasidone HCl 80 mg capsule 80 mg PO BEDTIME atorvastatin 40 mg tablet 40 mg PO BEDTIME metformin 500 mg tablet 500 mg PO TID clonidine HCl 0.1 mg tablet 0.1 mg PO BID lisinopril 20 mg tablet 20 mg PO DAILY Patient Comments: takes at bedtime clonazepam 0.5 mg tablet 0.5 mg PO BEDTIME clonazepam 0.5 mg tablet 0.25 mg PO QPM PRN (Reason: Anxiety) torsemide 10 mg tablet 10 mg PO DAILY amlodipine 5 mg tablet 5 mg PO DAILY Patient Comments: patient only takes 5 mg daily acetaminophen 500 mg Tablet 1,000 mg PO BID PRN (Reason: Pain) ibuprofen 200 mg Tablet 400 mg PO BID PRN (Reason: Pain) mirtazapine 15 mg tablet 15 mg PO BEDTIME fluoxetine 20 mg capsule 40 mg PO DAILY bupropion HCl 300 mg tablet extended release 24 hr 300 mg PO DAILY bupropion HCl 150 mg tablet extended release 24 hr 150 mg PO DAILY bimatoprost 0.03 % drops with applicator 1 drp TOPICAL BEDTIME Rx Instructions: 1 drop via applicator cyclobenzaprine 5 mg Tablet 5 mg PO TID Qty: 20 0RF prednisone 20 mg tablet 20 mg PO BID Qty: 10 0RF Print Language: Palauan
[2025-05-09 17:30] VITALS: BP 126/60; PULSE 103; RESP 18; TEMP 36.1; O2SAT 94; BMI 28.0
[2025-05-09 17:51] LABS: MANUAL DIFF FLAG NO
[2025-05-09 18:01] LABS: Hematocrit 36.8 % (37.0-47.0); Hemoglobin 12.2 g/dl (12.0-16.0); Imm Gran Abs Auto 0.03 X10*3/uL (0.00-0.03); Imm Gran Pct Auto 0.3 % (0.0-0.4); Lymphocytes Absolute Auto 2.9 X10*3/uL (1.2-4.9); Mean Corpuscular HGB Conc 33.2 g/dl (31.0-35.0); Mean Corpuscular Hemoglobin 28.2 pg (27.0-33.0); Mean Corpuscular Volume 85.0 fL (80.0-98.0); NRBC Abs Auto 0.000 X10*3/uL (0.0-0.012); NRBC Pct Auto 0.0 /100WBC (0.0-0.2); Platelet Count 400 X10*3/uL (160-400); Red Blood Count 4.33 X10*6/uL (4.20-5.50); White Blood Count 9.8 X10*3/uL (4.8-10.8)
[2025-05-09 18:08] LABS: Alanine Aminotransferase 22 U/L (0-31); Albumin Level 4.5 g/dL (3.5-5.0); Alkaline Phosphatase 87 U/L (39-117); Anion Gap 15 (12-20); Aspartate Amino Transferase 25 U/L (5-31); Blood Urea Nitrogen 34 mg/dL (9-16); Calcium 9.2 mg/dL (8.4-10.2); Carbon Dioxide 22 mmol/L (22-29); Chloride 103 mmol/L (96-108); Creatinine Clr Calc Pharmacy 35.7; Estimated Glomerular Filt Rate 27; Potassium 4.4 mmol/L (3.3-5.1); Sodium 136 mmol/L (135-145); Total Protein 7.0 g/dL (6.5-8.0)
--- OUTSIDE RECORDS SUMMARY | 2025-05-09 18:23 | XMS_ITS | Encounter Summary ---
Author Organization [facility] Address [address] [place] [address] Phone Care Team Providers Care Metallurgy Laboratory Technician Name Role Phone Manuel Stephenson MD Primary Care Provider [phone] Encounter Details Date Type Department Care Team (Late st Contact Info) Description 12/21/2022 Telephone [facility] [address] [place] [address] Grace Hall MA Social History Tobacco [...] Pt called, she is currently admitted to [facility] in room 462 due to a bad [...] staff onsite. Please call her back at [phone] when you get the chance thank you. This message has been sent through [employer] as well. documented in this encounter Plan of Treatment Upcoming Encounters Date Type Department Care Team (Late st Contact Info) Description 10/09/2025 2:45 PM EST Office Visit [facility] [address] [address] Tor Johnson MD [address] [address] documented as of this encounter Visit Diagnoses Not on filedocumented in this encounter Care Teams Metallurgy Laboratory Technician Relationship Specialty Start Date End Date Manuel Stephenson MD [address] [place] [address] PCP - General 09/16/20 documented as of this encounter
--- OUTSIDE RECORDS SUMMARY | 2025-05-09 18:23 | XMS_ITS | Continuity of Care Document ---
Author Organization [facility] [address] [place] [address] Phone [phone] Care Team Providers Care Pipe Washer Name Role Phone Manuel Stephenson M.D. Care Team Information Receive r [phone] Problems Active Problems Provider Date Type 2 diabetes mellitus FARNAZ Barrett Onse t: 12/18/2024 Essential hypertension FARNAZ Barrett Onset: 12/18/2024 Hypercholesterolemia FARNAZ Barrett Onset: 0 12/18/2024 Anxiety FARNAZ Barrett Onset: 2024 Depressive disorder FARNAZ Barrett Onset: Malignant neoplasm of skin FARNAZ Barrett On set: 12/18/2024 Drug abuse FARNAZ Barrett Onset: 2024 Alcohol abuse FARNAZ Barrett Onset: 2024 Social History Type Date Description Comments Sex Female Sex Unknown Lives With Alone Abuse History of emotional abuse Tobacco Use Start: Unknown End: Unknown Quit Smoking Status Reviewed: 09/06/02 Quit ETOH Use Currently consumes alcohol Recreational Drug Use Current Drug User [facility] Medications Active Medications SIG Qnty Indications Order ing Provider Date Svgluducty43ml Tablets Take 1 Tablet By Mouth Every Day Manuel Stephenson M.D. Trulicity0.75mg/0.5M L Solution Auto-Inject Inject 0.75 MG (0.5 ML) Subcutaneously Once Per Week Garrett OSEI Metformin [id number] Tablets Take 1 Tablet By Mouth Every Morning And 2 Tablets In The Evening With Meals Manuel Stephenson M.D. Fluoxetine FQQ18io Capsules Take 2 Capsules By Mouth Every Morning Unknown Atorvastatin Drtuebt45kk Tablets Take 1 Tablet By Mouth Every Evening Manuel Stephenson M.D. Amlodipine Jxltteee4rx Tablets Take 2 Tablets By Mouth Every Day Garrett OSEI Bimatoprost0.03% Solution Instill 1 Drop Into Affected Eye(S) Every Night AT Bedtime Unknown Clonidine HCL0.1mg Tablets Take 1 Tablet By Mouth Twice A Day Manuel Stephenson M.D. Zqiiwtnxigy48bc Tablets Take 1 Tablet By Mouth Everyday AT Bedtime Unknown Ziprasidone ZHL29xy Capsules Take 1 Capsule By Mouth Everyday AT Bedtime Unknown Magnesium Aoykf214rx Tablets Take 1 Tablet By Mouth 1 Time Each Day. Unknown Clonazepam0.5mg Tablets Take 1/2 (One-Half) Tablet By Mouth In The Evening as Needed And One Tablet AT B Unknown Qvtoswyvf20ru Tablets Take 1 Tablet By Mouth Every Day Manuel Stephenson M.D. Dicyclomine PSV11gg Capsules Take 1 Tablet By Mouth 2 Times A Day as Needed Cristian Fan MD Lfhqzvjkl20xh Tablets Take 1 Tablet By Mouth Every Day Manuel Stephenson M.D. Vital Signs Date Vital Result Comment 12/18/2024 9:48am BP Systolic 118 mmHg BP Diastolic 80 mmHg Heart Rate 82 /min Height 67 inches 5'7 Weight 188.50 lb BMI (Body Mass Index) 29.5 kg/m2 Results Test Acquired Date Facility Test Result H/L Range N ote Glucose Fingerstick 12/18/2024 Inhouse Glucose Fingerstick 124 Hemoglobin A1c 12/18/2024 Inhouse Hemoglobin A1c 5.8% Medical Devices Description No Information Available Encounters Type Date Location Provider Dx Diagnosis Office Visit 12/18/2024 9:15a Main Office FARNAZ Barrett E11.9 Type 2 diabet es mellitus without complications E21.3 Hyperparathyroidism, unspecified Assessments Date Code Description Provider 12/18/2024 E11.9 Type 2 diabetes mellitus wit hout complications FARNAZ Barrett 12/18/2024 E21.3 Hyperparathyroidism, unspeci fied FARNAZ Barrett Plan of Treatment Future Appointment(s):* 05/17/2025 3:15 pm - Kylie Livingston NP at Main Office 12/18/2024 - FARNAZ Barrett* E11.9 Type 2 diabetes mellitus without complications * E21.3 Hyperparathyroidism, unspecified Functional Status Description No Information Available Mental Status Description No Information Available Referrals Refer to Dr Reason for Referral Status Appt Db Nasreen Tyson M.D. Created [address] [place] [address] Drive [address] [place] [id number] [phone]
--- OUTSIDE RECORDS SUMMARY | 2025-05-09 18:23 | XMS_ITS | Encounter Summary ---
Author Organization [facility] Address [address] [facility] [address] [place] [address] Phone Care Team Providers Care Shutdown Coordinator Name Role Phone Manuel Stephenson MD Primary Care Provider [phone] Reason for Referral * Imaging (Routine) - Closed Specialty Diagnoses / Procedures Referred By Juan retana Referred To Contact Diagnoses Stage 3b chronic kidney disease (HCC) Procedures Ultrasound renal limited Tor Johnson MD Phone: tel: fax: Referral ID Status Reason Start Date Expiration Date Visits Re quested Visits Authorized [id number] Closed 04/04/2024 04/04/2025 1 1 * Imaging (Routine) - Closed Specialty Diagnoses / Procedures Referred By Juan retana Referred To Contact Diagnoses Stage 3b chronic kidney disease (HCC) Procedures Renal Artery Duplex Tor Johnson MD Phone: tel: fax: Referral ID Status Reason Start Date Expiration Date Visits Re quested Visits Authorized [id number] Closed 04/04/2024 04/04/2025 1 1 Encounter Details Date Type Department Care Team (Latest Contact Info) Description 04/04/2024 Office Communication [facility] [address] [facility] [address] [place] [address] Tor Johnson MD [address] [facility] [address] [place] [address] Stage 3b chronic kidney disease [...] Office Visit [facility] [address] [address] Tor Johnson MD [address] [address] Scheduled Orders Name Type Priority Associated Diagnoses Orde r Schedule Renal Artery Duplex Imaging Routine Stage 3b chronic kidney disease (HCC) Expected: 04/11/2024, Expires: 04/04/2025 Ultrasound renal limited Imaging Routine Stage 3b chronic kidney disease (HCC) Expected: 04/11/2024, Expires: 04/04/2025 documented as of this encounter Visit Diagnoses Diagnosis Stage 3b chronic kidney disease (HCC)- Primary documented in this encounter Care Teams Shutdown Coordinator Relationship Specialty Start Date End Date Manuel Stephenson MD [address] [place] [address] PCP - General 09/16/20 documented as of this encounter
--- OUTSIDE RECORDS SUMMARY | 2025-05-09 18:23 | XMS_ITS | Clinical Summary ---
Author Organization [facility] Address [address] [id number] Care Team Providers Care Bomb Squad Officer Name Role Phone Brigida Tucker MD Primary Care Provider [phone] Allergies Active Allergy Reactions Criticality Noted Date [...] age to complete this topic Care Teams Bomb Squad Officer Relationship Specialty Start Date End Date Brigida Tucker MD PCP - General Internal Medicine 04/30/17
--- OUTSIDE RECORDS SUMMARY | 2025-05-09 18:23 | XMS_ITS | Clinical Summary ---
Author Organization [facility] [address] [place] [address] Address [address] [place] [address] Phone Care Team Providers Care Information Assoc Name Role Phone Manuel Stephenson MD Primary Care Provider [phone] Allergies Active Allergy Reactions Criticality Noted Date [...] propionate (FLONASE) 50 mcg/actuation nasal spray 1 [place] by Each Nare route daily. 06/01/20 14 [...] of the studies Opioid abuse, in remission ([facility] V24, [facility] V28) 05/14/2016 Overview (09/11/2024): 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 Primary osteoarthritis of left knee 01/23/2016 Recurrent Clostridium difficile diarrhea 015 Clostridium difficile diarrhea 06/02/2015 Sebaceous cyst 08/16/2012 Bunion 05/16/2012 Overview (09/11/2024): Both feet. S/p bunionectomy right foot but recurred Migraine 12/28/2011 Controlled diabetes mellitus type II without complication ([facility] V24, [facility] V28) 05/04/2011 Fatty liver 07/24/2010 Overview (09/11/2024): Noted on CT abd 11/2009 WILSON (dyspnea on exertion) 03/25/2010 Overview (09/11/2024): ECHO, PFT unremarkable 02/13 Pure hypercholesterolemia 03/25/2010 Alcohol abuse, in remission 02/10/2010 Overview (09/11/2024): ETOH pancreatitis 11/2009; another episode 01/2015. As of 05/2016 - drinks only on weekends. Borderline personality disorder ([facility] V24, [facility] S/HCC V28) 01/27/2010 Overview (09/11/2024): Diagnosed by a psychiatrist with bipolar, More depression than manic; however 2012 diagnosed with borderline personality d/o by [facility] HTN (hypertension), benign 01/27/2010 Encounters Date Type Department Care Team Description 02/14/2025 10:15 AM EDT Office Visit Obstetrics and Gynecology - [address] [phone] Dee Oh MD Encounter for gynecological examination without abnormal finding (Primary Dx) 02/13/2025 Telephone Obstetrics and Gynecology - [address] [phone] Dee Oh MD from Last 3 Months Immunizations Name Administration [...] History Medical History Date Comments Bipolar disorder ([facility] V2 4, [facility] V28) 01/27/2010 DX:Bipolar disorder (HCC) HTN (hypertension), benign 01/27/2010 DX:HT N (hypertension), benign ETOH abuse 02/10/2010 DX:ETOH abuse Pancreatitis 02/10/2010 DX:Pancreatitis Melanoma ([facility]/HCC V24, [facility] V28) 02/10/2010 DX:Melanoma ([facility]) Pure hypercholesterolemia 03/25/2010 DX:Pur e hypercholesterolemia WILSON [...] cyst 08/16/2012 DX:Sebaceous cys t Malignant melanoma ([facility] V24, [facility] V28) 07/07/2012 DX:Malignant melanoma (HCC); COMMENT: Malignant melanoma 1994 posterior aspect left thigh (superficial spreading breath low 0.4 mm Brenton level I per patient's recollection) Bunion 05/16/2012 DX:Bunion; COMME NT: Both feet. S/p bunionectomy right foot but recurred Migraine 12/28/2011 DX:Migraine Controlled diabetes mellitus type II without complication ([facility]/HCC V24, [facility] V28) 05/04/2011 DX:Controlled diabetes melli tus type II without complication ([facility]) History of pancreatitis 07/24/2010 DX:Histo ry of pancreatitis; COMMENT: November 2009, [facility], thought to be alcohol-induced Alcohol abuse 02/10/2010 DX:Alcohol abuse ; COMMENT: ETOH pancreatitis 11/2009; another episode 01/2015 Borderline personality disor wesly ([facility] V24, [facility] V28) 01/27/2010 DX:Borderline personality d isorder ([facility]); COMMENT: Diagnosed by a psychiatrist with bipolar, More depression than manic; however 2012 diagnosed with borderline personality d/o by [facility] Basal cell carcinoma of skin 07/30/2015 DX: [...] level I per patient's recollection). Followed by [facility] Family History Medical History Relation Name [...] Ectopic Multiple Livin g Live Births 1 1 1 1 Date Outcome GA Total Labor Labor/2nd/3rd Weight Sex Type Anes PTL Antonina A1 [...] 11:15 AM EDT Appointment [facility] - [place] [address] [place] [phone] Health Maintenance Due Date Last Done Comments [...] (2 - Td or Tdap) 11/10/2023 11/09/2013 Diabetes: Annual GFR (Glomerular Filtration Rate) 03/16/2025 03/16/2024, 01/25/2018 Hypertension/CHF/CAD Annual BMP Blood Test 03/16/2025 03/16/2024, 01/25/2018 COVID-19 Vaccine ( season) 2025 07/21/2021, 11/02/2020, 10/12/2020 Influenza Vaccine (#1) 2025 , 05/20/2018, 06/07/2017, [...] Encounter for screening mammogram for breast cancer HM HPV Routine 12/30/2023 ANNUAL BMP BLOOD TEST Routine 01/25/2018 HEMOGLOBIN A1C Routine 01/25/2018 URINE ALBUMIN CREATININE RATIO Routine 01/19/2018 HM [...] is recommended in 1 year. Mammo Location: [facility], [address] [place] [address], [id number], . -------- FINAL REPORT -------- Dictated By: Jill Cruz Dictated Date: 02/05/2025 15:16 ET Assigned Physician: Jill Cruz Reviewed and Electronically Signed By: Jill Cruz Signed Date: 02/05/2025 15:21 ET Workstation ID: [id number] Transcribed By: Self Edit Transcribed Date: 02/05/2025 15:16 ET Narrative 02/05/2025 3:21 PM EDT CLINICAL: 59 years old, Female, routine annual exam. COMPARISON: Mammograms dating back to 11/27/2020 with most recent of 08/08/2024. TECHNIQUE: Bilateral MLO and CC views were obtained digitally with 3-D mammogram (digital breast tomosynthesis). Implant-displaced and [id number]-joeuayukg imaging was performed. Computer-aided detection was utilized [...] digitally with 3-Dmammogram (digital breast tomosynthesis). Implant-displaced nrbiuo-[id number]-[id number] imaging was performed. Computer-aided detection wasutilized in [...] is recommended in 1 year. Mammo Location: [facility], [address] [place] [address], [id number], . -------- FINAL REPORT -------- Dictated By: Jill Cruz Dictated Date: 02/05/2025 15:16 ET Assigned Physician: Jill Cruz Reviewed and Electronically Signed By: Jill Cruz Signed Date: 02/05/2025 15:21 ET Workstation ID: [id number] Transcribed By: Self Edit Transcribed Date: 02/05/2025 15:16 ET Neena Ragland CN IMG BI PROCEDURES Final Resul t * Cervical Cancer Screening: HPV (12/30/2023) [facility] Cervical Cancer Screening: HPV Negative, Abstracted Historical Provider HEALTH MAINTENANCE Final Result * Annual BMP Blood Test (01/25/2018) [facility] Annual BMP Blood Test Abstracted Historical Provider HEALTH MAINTENANCE Final Result * (ABNORMAL) Hemoglobin A1c (01/25/2018) Pathologist [facility] Hemoglobin A1C 6.7(A) 4.0 - 6.0 % Blood Venous blood specimen / Unknown Historical Provider LAB BLOOD ORDERABLES Nicole l Result * Urine Albumin Creatinine Ratio (01/19/2018) Pathologist [facility] Urine Albumin Creatinine Ratio Abstraction Historical Provider HEALTH MAINTENANCE Final Result * Colonoscopy (09/24/2017) Pathologist [facility] Colonoscopy No Interpretation , Abstracted Anatomical Region Laterality Modality Other Historical Provider HEALTH MAINTENANCE Final Result * Lipid panel (09/08/2017) Pathologist [facility] LDL/HDL Ratio 2 0 - 4 Triglycerides 129 0 - 150 mg/dL Cholesterol 162 0 - 200 mg/dL HDL 76 >=40 mg/dL LDL Cholesterol 60 0 - 100 mg/dL Blood Venous blood specimen / Unknown Historical Provider LAB BLOOD ORDERABLES Nicole l Result from Last 3 Months or Most Recently Relevant to Health Maintenance Insurance [facility] MEDICAID - [place] Care Teams Information Assoc Relationship Specialty Start Date End Date Manuel Stephenson MD [address] [address] PCP - General Internal Medicine 02/13/25
--- OUTSIDE RECORDS SUMMARY | 2025-05-09 18:23 | XMS_ITS | Clinical Summary ---
Author Organization [facility] Address [address] [phone] Phone Care Team Providers Care Data Conversion Operator Name Role Phone Manuel Stephenson MD Primary Care Provider [phone] Allergies Active Allergy Reactions Criticality Noted Date Comments Amoxicillin Other (see comments) 05/28/2017 Latex 05/28/2017 Propylene Glycol 10/20/2024 Medications Turmeric (QC Tumeric Complex) 500 MG [...] mouth 1 (one) time each day Active magnesium oxide (MAG-OX) 400 MG tablet TAKE 1 TABLET BY MOUTH 1 TIME EACH DAY. 90 tablet 3 01/23/2025 Active Berberine Chloride (BERBERINE HCI PO) Take 400 mg by mouth in the morning and 400 mg in the evening. Active calcitriol (Rocaltrol) 0.25 MCG capsule Take 1 capsule (0.25 mcg total) by mouth every other day 45 capsule 04/24/2025 Active Active Problems Problem Noted Date Diagnosed Date Stage 3b chronic kidney disease 06/24/2023 Renal osteodystrophy 06/24/2023 Obese class I 06/22/2023 06/22/2023 Disorder of kidney 03/26/2023 Overview (12/03/2023): stage 3 Diabetes mellitus 03/26/2023 Acute nontraumatic kidney injury 10/23/2020 Hypertensive disorder 10/23/2020 Renal disorder due to type 2 diabetes mellitus 0 10/23/2020 Arthritis of right knee 12/29/2017 Arthritis of left knee 05/28/2017 Harmful pattern of use of opioid 05/14/2016 Overview (04/24/2025): 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 Encounters Date Type Department Care Team Description 04/24/2025 2:45 PM EDT Office Visit [facility] [address] [phone] Tor Johnson MD Stage 3b chronic kidney disease (HCC) (Primary Dx); Renal osteodystrophy; Hypertensive disorder 04/19/2025 Orders Only [facility] [address] [phone] Tor Johnson MD 03/01/2025 Orders Only [facility] [place] [id number] [phone] Dayana Mcclellan Renal disorder due to type 2 diabetes mellitus <Diabetic nephropathy> (HCC) (Primary Dx); Renal osteodystrophy; Hypertensive disorder from Last 3 Months Immunizations Immunization Administration Dates Next Due Influenza (IM) Preservative Free 016,05/20/2015,05/25/2013,05/16,08/06/2011 Influenza, MDCK, Quadrivalen t, with preservative 06/07/2017 Influenza, Quadrivalent, Pre servative Free 04/28/2020,05/20/2018 Influenza, Unspecified 04/28/2020,2015,05/20/2015,06/08,05/25/2013,05/16/2012,08/06/2011 PPD Test 03/11/2016,01/03/2014,12/10/2011 Pfizer SARS-COV-2 07/21/2021,11/02/2020,10/12/19 21 Pneumococcal Polysaccharide 08/06/2011 [...] Sign Reading Time Taken Comments Blood Pressure 122/74 04/24/2025 2:45 PM EDT Pulse 86 04/24/2025 2:45 PM EDT Temperature - - Respiratory Rate - - Oxygen Saturation 97% 04/24/2025 2:45 PM EDT Inhaled Oxygen Concentration - - Weight 82 kg (180 lb 12.8 oz) 04/24/2025 2:45 PM EDT Height 170.2 cm (5' 7 ) 11/23/2022 2:58 PM EDT Body Mass Index 28.32 11/23/2022 2:58 PM EDT Plan of Treatment Upcoming Encounters Date Type Department Care Team (Late st Contact Info) Description 10/09/2025 2:45 PM EST Office Visit [facility] [address] [facility] [address] [place] [phone] Tro Johnson MD [address] [facility] [address] [place] [phone] Health Maintenance Due Date Last Done Comments Breast Cancer Screening 1965 Hepatitis B Vaccine (1 of 3 - 19+ 3-dose series) 1986 Pneumococcal Vaccine: 50+ Ye ars (2 of 2 - PCV) 08/06/2012 08/06/2011 Colorectal Cancer Screening: Annual FOBT 2016 Colorectal Cancer Screening: Colonoscopy 2016 Colorectal Cancer Screening: Sigmoidoscopy 2016 Diabetes: Hemoglobin A1C 10/07/2020 01/25/2018 Diabetes: Ophthalmology Exam 10/07/202005/2013, 05/24/2012, 10/06/2011 Diabetes: Pedal Pulse Checked 10/07/2020 Diabetes: Sensory Foot Exam 10/07/2020 Diabetes: Visual Foot Exam 10/07/2020 Influenza Vaccine (#1) 2025 0, 04/28/2020, 05/20/2018, Additional history exists Pneumococcal Vaccine: Peds ( 0 to 5 Years) and At-Risk Patients (6 to 49 Years) Discontinued 08/06/2011 Procedures Procedure Name Priority Date/Time Associated Diagnosis Comments ALBUMIN, URINE, RANDOM Routine 04/19/2025 5:09 PM EDT CALCIUM Routine 04/19/2025 3:54 PM EDT CREATININE, BLOOD Routine 04/19/2025 3:5 4 PM EDT BUN Routine 04/19/2025 3:54 PM EDT ELECTROLYTE PANEL Routine 04/19/2025 3:5 4 PM EDT PTH, INTACT (HC) Routine 04/19/2025 3:54 PM EDT VITAMIN D 25 HYDROXY Routine 04/19/2025 3:54 PM EDT Renal osteodystrophy Hypertensive disorder Renal disorder due to type 2 diabetes mellitus <Diabetic nephropathy> (HCC) CBC AND DIFFERENTIAL Routine 04/19/2025 3:54 PM EDT Renal osteodystrophy Hypertensive disorder Renal disorder due to type 2 diabetes mellitus <Diabetic nephropathy> (HCC) from Last 3 Months Results * Albumin, urine, random (04/19/2025 5:09 PM EDT) Creatinine, Urine 29.44 mg/dL Se e order comments Urine Microalbumin <5.0 mg/L See order comments Microalbumin/Crea tinine Ratio TNP <30 ug/mg cr See order comments Comment: Unable to calculate albumin/creatinine ratio due to low microalbumin or creatinine result. 04/19/2025 5:09 PM EDT 04/19/2025 5:09 PM EDT Tor Johnson MD LAB URINE ORDERABLES Final Re sult Performing Organization Address [facility] Co de Phone Number AIMWELL See order comments [place] [address] * (ABNORMAL) Creatinine (04/19/2025 3:54 PM EDT) Creatinine Serum 1.75(H) 0.5 - 1.4 mg/dL See order comments eGFR (Calc) 30 See orde r comments Comment: Chronic Kidney Disease: Estimated GFR < 60 mL/min/1.73m2 Severe Kidney Disease: Estimated GFR < 15 mL/min/1.73m2 04/19/2025 3:54 PM EDT 04/19/2025 3:54 PM EDT us Tor Johnson MD LAB BLOOD ORDERABLES Final Re sult Performing Organization Address [facility]/ZIP Co de Phone Number AIMWELL See order comments [place] [address] * (ABNORMAL) PTH, Intact (04/19/2025 3:54 PM EDT) Parathyroid Hormone, Intact 164.1(H) 8.7 - 77.1 pg/mL See order comments 04/19/2025 3:54 PM EDT 04/19/2025 3:54 PM EDT Tor Johnson MD LAB [id number] SOLICITED RESULTS Final Result Performing Organization Address [facility] Co de Phone Number NESHA See order comments [place] [address] * Vitamin D 25 hydroxy (04/19/2025 3:54 PM EDT) Vitamin D, 25-Hydroxy 48.5 >30 ng/mL See order comments Comment: Health Based Reference Values* < 20 ng/mL Deficient 20-30 ng/mL Insufficient > 30 ng/mL Sufficient *Patricia WOLFE. N Engl J Med. 2007;357:266-280 There is no well-established upper level of normal vitamin D levels. Some laboratories use 50 ng/mL as an upper limit of normal. However, toxicity is patient-dependent and may occur at any level. Careful correlation with the patient's presentation is necessary and, if there is concern for vitamin D toxicity, treatment should be considered irrespective of the serum level. Care must be taken in interpreting Vitamin D results from different laboratories and methodologies. Published data demonstrated that results from patients undergoing hemodialysis may show a negative bias when tested with various automated 25-OH vitamin D assays when compared to LC-MS/MS. When testing samples from patients whose predominant form of Vitamin D is Vitamin D2, such as patients receiving Vitamin D2 supplementation, results that are subtherapeutic should be confirmed with another method such as LC-MS/MS. Blood Venous blood / Unknown 04/19/2025 3:54 PM EDT 04/19/2025 3:54 PM EDT us Tor Johnson MD LAB BLOOD ORDERABLES Final Re sult Performing Organization Address [facility] Co de Phone Number NESHA See order comments [place] [address] * (ABNORMAL) CBC and differential (04/19/2025 3:54 PM EDT) WBC 9.6 4.8 - 10.8 X10*3/uL See order comments RBC 4.11(L) 4.20 - 5.50 X10*6/uL See order comments Hgb 11.7(L) 12.0 - 16.0 g/dl See order comments Hematocrit 35.1(L) 37.0 - 47.0 % See order comments MCV 85.4 80.0 - 98.0 fL See order comments MCH 28.5 27.0 - 33.0 pg See order comments MCHC 33.3 31.0 - 35.0 g/dl See order comments RDW 13.4 11.0 - 16.0 % See order comments Platelets 432(H) 160 - 400 X10*3/uL See order comments MPV 9.3(L) 9.4 - 12.3 fL See order comments Neutrophils % Auto 58.7 45 - 73 % See order comments Immature Granulocytes 0.3 0.0 - 0.4 % See order comments Lymphocytes Relative 31.0 20 - 40 % See order comments Monocytes 7.1 2 - 11 % See order comments Eosinophils Relative 2.1 0 - 4 % See order comments Basophils Relative 0.8 0 - 2 % See order comments nRBC Count 0.0 0.0 - 0.2 /100WBC See order comments Neutrophils Absolute 5.6 2.0 - 8.3 x10*3/uL See order comments Immature Grans (Absolute) 0.03 0.00 - 0.03 X10*3/uL See order comments Lymphocytes Absolute 3.0 1.2 - 4.9 X10*3/uL See order comments Monocytes Absolute 0.7 0.1 - 1.2 X10*3/uL See order comments Eosinophils Absolute 0.2 0.0 - 0.4 X10*3/uL See order comments Basophils Absolute 0.1 0.0 - 0.2 X10*3/uL See order comments NRBC Absolute 0.000 0.0 - 0.012 X10*3/uL See order comments Blood Venous blood / Unknown 04/19/2025 3:54 PM EDT 04/19/2025 3:54 PM EDT us Tor Johnson MD LAB BLOOD ORDERABLES Final Re sult Performing Organization Address [facility] Phone Number AIMWELL See order comments [place] [address] * (ABNORMAL) BUN (04/19/2025 3:54 PM EDT) BUN 28(H) 9 - 16 mg/dL See order comments 04/19/2025 3:54 PM EDT 04/19/2025 3:54 PM EDT us Tor Johnson MD LAB BLOOD ORDERABLES Final Re sult Performing Organization Address [facility] Phone Number [facility] See order comments [place] [address] * Calcium (04/19/2025 3:54 PM EDT) Calcium 9.1 8.4 - 10.2 mg/dL See order comments 04/19/2025 3:54 PM EDT 04/19/2025 3:54 PM EDT us Tor Johnson MD LAB BLOOD ORDERABLES Final Re sult Performing Organization Address [facility] Phone Number A[place]LL See order comments [place] [address] * (ABNORMAL) Electrolyte panel (04/19/2025 3:54 PM EDT) Sodium 134(L) 135 - 145 mmol/L See order comments Potassium 4.3 3.3 - 5.1 mmol/L See order comments Chloride 101 96 - 108 mmol/L See order comments Bicarbonate (CO2) 24 22 - 29 mmol/L See order comments Anion Gap 13 12 - 20 See order comments 04/19/2025 3:54 PM EDT 04/19/2025 3:54 PM EDT us Tor Johnson MD LAB BLOOD ORDERABLES Final Re sult Performing Organization Address [facility] Phone Number NESHA See order comments [place] [address] from Last 3 Months Insurance [facility] [place] [facility] [place] [facility] [place] [facility] Medicare Medicaid [place] Care Teams Data Conversion Operator Relationship Specialty Start Date End Date Manuel Stephenson MD [address] [place] [address] PCP - General 09/16/20
[2025-05-09 18:24] VITALS: BP 131/75; PULSE 85; RESP 16; O2SAT 94
[2025-05-09] MEDS: Silver Nitrate Applicator STICK..EA. 2 APPL TOPICAL (18:25)
[2025-05-09 20:09] VITALS: BP 134/80; PULSE 77; RESP 18; TEMP 36.8; O2SAT 96
[2025-05-09 20:10] VITALS: BP 134/80; PULSE 77; RESP 18; TEMP 36.8; O2SAT 96
== END 2025-05-09 20:10 | disposition home or self-care (01) ==
PROVIDERS: Physician Assistant Medical; Emergency Provider Emergency Medicine
DX: R04.0 Epistaxis (principal); Z79.899 Other long term (current) drug therapy; Z87.891 Personal history of nicotine dependence
CPT/HCPCS: 30901; 36415; 80048; 80076; 85025; 99283; 99284

== ENCOUNTER 2025-06-15 11:17 | Outpatient (REF) | payer MEDICARE, MEDICAID, SELFPAY ==
[2025-06-15 12:17] LABS: Appearance Urine Clear; Glucose Urine UA Negative (Negative); PH 6.0 (5.0-9.0); Specific Gravity - Urine <= 1.005 (1.005-1.025)
[2025-06-15 12:39] LABS: Anion Gap 11 (12-20); Blood Urea Nitrogen 18 mg/dL (9-16); Calcium 9.7 mg/dL (8.4-10.2); Carbon Dioxide 28 mmol/L (22-29); Chloride 103 mmol/L (96-108); Estimated Glomerular Filt Rate 30; Potassium 4.6 mmol/L (3.3-5.1); Sodium 137 mmol/L (135-145)
[2025-06-15 13:12] LABS: Total Protein Urine Random < 7 mg/dL (<12)
[2025-06-15 13:42] LABS: Parathyroid Hormone Intact 129.2 pg/mL (8.7-77.1)
== END 2025-06-15 11:18 | disposition home or self-care (01) ==
LOC: HO.LAB 11:17
PROVIDERS: PCP Physician Assistant; Visit Provider Internal Medicine Nephrology
DX: I12.9 Hypertensive chronic kidney disease with stage 1 through stage 4 chronic kidney disease, or unspecified chronic kidney disease (principal); N18.32 Chronic kidney disease, stage 3b; N25.0 Renal osteodystrophy
CPT/HCPCS: 36415; 80051; 81001; 82043; 82310; 82565; 82570; 83970; 84100; 84156; 84520